=== PATIENT | male | born 1935 | race African-American/Black ===

== ENCOUNTER 2016-12-11 21:09 | Emergency (ER) | payer OTHER, BC ==
[2016-12-11 21:21] VITALS: TEMP 97.6
[2016-12-11] MEDS ORDERED: SODIUM CHLORIDE 0.9% 500 ML INFUS.BAG IV ONE (21:46)
--- NOTE | 2016-12-11 22:07 | PDOC ---
History of Present Illness - General History Source: Patient Exam Limitations: No Limitations - History of Present Illness Initial Comments: 12/11/16 22:17 82 year old male with past medical history of hypertension and diabetes who presents to the ED with complaints of dizziness for three days. As per patient, the symptoms are associated with a change in position. He reports that the symptoms are better when he is stationary. He qualifies the dizziness as a feeling of being off balance. He denies any room spinning sensation or blurred vision. He denies any syncope or LOC. He reports recently being placed on oxybutynin, flomax, primidone about a month ago. He denies any changes in appetite, urination or bowel movements. He denies any recent illness, fever, chills, nausea, vomiting, diarrhea, cough, shortness of breath, or chest pain. <Dana Chaney - Last Filed: 12/11/16 22:32> <Nino Esparza - Last Filed: 12/12/16 06:20> - General Chief Complaint: Lightheaded Stated Complaint: LIGHT HEADED Time Seen by Provider: 12/11/16 21:30 Past History <Dana Chaney - Last Filed: 12/11/16 22:32> - Past Medical History Cardiac Disorders: Yes (2 stents) Diabetes: Yes HTN: Yes Hypercholesterolemia: Yes - Surgical History Cardiac Surgery: Yes (2 stents [facility]) - Psycho/Social/Smoking Cessation Hx Anxiety: No Suicidal Ideation: No Smoking Status: No Smoking History: Never smoked Have you smoked in the past 12 months: No Number of Cigarettes Smoked Daily: 0 Information on smoking cessation initiated: No Drug/Substance Use Hx: No Substance Use Type: None <Nino Esparza - Last Filed: 12/12/16 06:20> - Past Medical History Allergies/Adverse Reactions: Allergies Allergy/AdvReac Type Severity Reaction Status Date / Time No Known Allergies Allergy Verified 12/11/16 21:21 Home Medications: Ambulatory Orders Atenolol 50 mg PO DAILY 10/20/11 Atorvastatin Ca [Lipitor] 80 mg PO HS 10/20/11 Review of Systems - Review of Systems Able to Perform ROS?: Yes Comments:: 12/11/16 22:17 GENERAL/CONSTITUTIONAL: No fever or chills. No weakness. HEAD, EYES, EARS, NOSE AND THROAT: No change in vision. No ear pain or discharge. No sore throat. CARDIOVASCULAR: No chest pain or shortness of breath. RESPIRATORY: No cough, wheezing, or hemoptysis. GASTROINTESTINAL: No nausea, vomiting, diarrhea or constipation. GENITOURINARY: No dysuria, frequency, or change in urination. MUSCULOSKELETAL: No joint or muscle swelling or pain. No neck or back pain. SKIN: No rash NEUROLOGIC: Present: dizziness, lightheadedness No headache, loss of consciousness, or change in strength/sensation. ENDOCRINE: No increased thirst. No abnormal weight change. HEMATOLOGIC/LYMPHATIC: No anemia, easy bleeding, or history of blood clots. ALLERGIC/IMMUNOLOGIC: No hives or skin allergy. All Other Systems: Reviewed and Negative <Dana Chaney - Last Filed: 12/11/16 22:32> *Physical Exam - Vital Signs Last Vital Signs Temp Pulse Resp BP Pulse Ox 97.6 F 64 18 136/71 96 12/11/16 21:18 12/11/16 21:18 12/11/16 21:18 12/11/16 21:18 12/11/16 21:18 - Physical Exam Comments: 12/11/16 22:18 GENERAL: Awake, alert, and fully oriented, in no acute distress HEAD: No signs of trauma EYES: PERRLA, EOMI, sclera anicteric, conjunctiva clear ENT: Auricles normal inspection, hearing grossly normal, nares patent, oropharynx clear without exudates. Moist mucosa NECK: Normal ROM, supple, no lymphadenopathy, JVD, or masses LUNGS: Breath sounds equal, clear to auscultation bilaterally. No wheezes, and no crackles HEART: Regular rate and rhythm, normal S1 and S2, no murmurs, rubs or gallops ABDOMEN: Soft, nontender, normoactive bowel sounds. No guarding, no rebound. No masses EXTREMITIES: Normal range of motion, no edema. No clubbing or cyanosis. No cords, erythema, or tenderness NEUROLOGICAL: Cranial nerves II through XII grossly intact. Normal speech, normal gait SKIN:Palmar pallor and facial pallor. Warm, Dry, normal turgor, no rashes or lesions noted. <Dana Chaney - Last Filed: 12/11/16 22:32> - Vital Signs Last Vital Signs Temp Pulse Resp BP Pulse Ox 97.6 F 64 18 136/71 96 12/11/16 21:18 12/11/16 21:18 12/11/16 21:18 12/11/16 21:18 12/11/16 21:18 <Nino Esparza - Last Filed: 12/12/16 06:20> ED Treatment Course - LABORATORY CBC & Chemistry Diagram: 12/11/16 21:54 12/11/16 21:54 - ADDITIONAL ORDERS Additional order review: 12/11/16 21:54 RBC 4.89 MCV 89.2 MCHC 33.9 RDW 14.7 MPV 8.9 Neutrophils % 50.6 Lymphocytes % 33.6 Monocytes % 11.6 H Eosinophils % 3.4 Basophils % 0.8 - Medications Given in the ED: ED Medications Discontinued Medications Generic Name Dose Route Start Last Admin Trade Name Freq PRN Reason Stop Dose Admin Sodium Chloride 500 ml 12/11/16 21:46 12/11/16 22:05 Normal Saline - IV 12/11/16 21:47 500 ml ONCE ONE Administration <Dana Chaney - Last Filed: 12/11/16 22:32> - LABORATORY CBC & Chemistry Diagram: 12/11/16 21:54 12/11/16 23:30 - Medications Given in the ED: ED Medications Discontinued Medications Generic Name Dose Route Start Last Admin Trade Name Freq PRN Reason Stop Dose Admin Sodium Chloride 500 ml 12/11/16 21:46 12/11/16 22:05 Normal Saline - IV 12/11/16 21:47 500 ml ONCE ONE Administration <Nino Esparza - Last Filed: 12/12/16 06:20> Medical Decision Making - Medical Decision Making 12/12/16 01:05 This is an 89yo m with light headedness reported "every time" he stands from seated or laying flat position. He has no chest pains reported and no other symptoms as well. He has a negative evaluation other than pallor and EKG is reassuring. He has no significant anemia; he has positive orthostatics indicating significant dehydration; will hydrate and recheck. If there is no normalization he may require admission for continued hydration. 12/12/16 06:17 Vitals have normalized and there is no evidence of orthostatic hypotension. He is encouraged to follow up with the PMD and to aggressively hydrate. <Nino Esparza - Last Filed: 12/12/16 06:20> *DC/Admit/Observation/Transfer - Attestations Scribe Attestion: 12/11/16 22:18 Documentation prepared by Dana Chaney, acting as medical office asst for Nino Esparza MD. <Dana Chaney - Last Filed: 12/11/16 22:32> - Discharge Dispostion Admit: No Decision to Admit order Date/Time: 12/12/16 06:18 - Attestations Physician Attestion: 12/12/16 06:20 I, Dr. Nino Esparza MD, attest that this document has been prepared under my direction and personally reviewed by me in its entirety. I further attest, that it accurately reflects all work, treatment, procedures and medical decision -making performed by me. <Nino Esparza - Last Filed: 12/12/16 06:20> Diagnosis at time of Disposition: Dehydration, Orthostatic hypotension - Discharge Dispostion Disposition: HOME Condition at time of disposition: Good - Patient Instructions Additional Instructions: Please follow up with your PMD within the next 24 hours and if there is any change otherwise in your symptoms, please return immediately to the ED. Your symptoms are MOST LIKELY related to dehydration and it is essential for you to aggressively hydrate yourself so that you are urinating at least once an hour and the urine is clear yellow. If you develop any change in your symptoms, particularly, if you develop any chest pain, palpitations and SOB, please call 911 and return.
[2016-12-11 22:08] LABS: BASOPHIL 0.8 % (0-2.0); EOSINOPHIL 3.4 % (0-4.5); MCH 30.3 pg (25.7-33.7); MCHC 33.9 g/dl (32.0-35.9); MEAN CELL VOLUME 89.2 fl (80-96); MEAN PLT VOLUME 8.9 fl (7.5-11.1); NEUTROPHILS 50.6 % (42.8-82.8); PLATELET COUNT 136 K/MM3 (134-434); RDW 14.7 % (11.9-15.9); WHITE BLOOD COUNT 5.3 K/mm3 (4.0-10.0)
[2016-12-11 22:20] LABS: INR 1.09 (0.82-1.09)
[2016-12-12 00:02] LABS: URINE APPEARANCE CLEAR; URINE BILIRUBIN NEGATIVE (NEGATIVE); URINE BLOOD NEGATIVE (NEGATIVE); URINE COLOR LTYELLOW; URINE GLUCOSE (UA) NEGATIVE (NEGATIVE); URINE KETONE TRACE (NEGATIVE); URINE LEUK ESTERASE NEGATIVE (NEGATIVE); URINE NITRITE NEGATIVE (NEGATIVE); URINE PROTEIN NEGATIVE (NEGATIVE); URINE UROBILINOGEN NEGATIVE E.U./dl (0.2-1.0)
[2016-12-12 00:27] LABS: ALBUMIN 3.9 g/dl (3.4-5.0); BILIRUBIN,TOTAL 0.8 mg/dL (0.2-1.0); CALCIUM 8.9 mg/dL (8.5-10.1); CREATININE 1.2 mg/dL (0.7-1.3); TOT PROT 7.4 g/dl (6.4-8.2)
[2016-12-12] MEDS ORDERED: SODIUM CHLORIDE 0.9% 500 ML INFUS.BAG IV ONE ×3 (00:39→01:03)
[2016-12-12] MEDS ORDERED: SODIUM CHLORIDE 0.9% 1000 ML INFUS.BAG IV ONE (01:03)
[2016-12-12 01:20] LABS: TROPONIN I < 0.02 ng/ml (0.00-0.05)
[2016-12-12 06:03] VITALS: PULSE 80
[2016-12-12 06:04] VITALS: BP 155/99
--- NOTE | 2016-12-13 11:23 | EKG ---
Test Reason : Blood Pressure : / mmHG Vent. Rate : 065 BPM Atrial Rate : 065 BPM P-R Int : 168 ms QRS Dur : 098 ms QT Int : 430 ms P-R-T Axes : 019 051 063 degrees QTc Int : 447 ms NORMAL SINUS RHYTHM POSSIBLE LEFT ATRIAL ENLARGEMENT INCOMPLETE RIGHT BUNDLE BRANCH BLOCK BORDERLINE ECG WHEN COMPARED WITH ECG OF 30-JUN-2007 07:57, NO SIGNIFICANT CHANGE WAS FOUND Confirmed by NANCY QUESADA MD ([id number]) on 12/13/2016 11:23:26 AM Referred By: Confirmed By:NANCY QUESADA MD
--- NOTE | 2016-12-13 11:24 | EKG ---
Test Reason : Blood Pressure : / mmHG Vent. Rate : 055 BPM Atrial Rate : 055 BPM P-R Int : 198 ms QRS Dur : 096 ms QT Int : 442 ms P-R-T Axes : 030 026 074 degrees QTc Int : 422 ms SINUS BRADYCARDIA POSSIBLE LEFT ATRIAL ENLARGEMENT POSSIBLE INFERIOR INFARCT , AGE UNDETERMINED CANNOT RULE OUT ANTERIOR INFARCT , AGE UNDETERMINED ABNORMAL ECG WHEN COMPARED WITH ECG OF 11-DEC-2016 21:58, NO SIGNIFICANT CHANGE WAS FOUND Confirmed by NANCY QUESADA MD ([id number]) on 12/13/2016 11:24:21 AM Referred By: Confirmed By:NANCY QUESADA MD
== END 2016-12-12 06:22 | disposition home or self-care (01) ==
LOC: JER 21:09 → SUPCPDRO 21:09 → JER 12-12 06:22
PROC: 3E0337Z Introduction of Electrolytic and Water Balance Substance into Peripheral Vein, Percutaneous Approach (ICD-10-PCS; principal; 2016-12-11)
DX: I95.1 Orthostatic hypotension (principal); E86.0 Dehydration; I10 Essential (primary) hypertension; E11.9 Type 2 diabetes mellitus without complications; Z95.5 Presence of coronary angioplasty implant and graft
CPT/HCPCS: 36415; 80053; 81003; 82550; 82553; 83605; 84484; 85025; 85610; 86850; 86900; 86901; 93005; 93010; 96360; 96361; 99282-25

== ENCOUNTER 2019-05-02 17:08 | Emergency (ER) | payer OTHER, BC ==
[2019-05-02 17:22] VITALS: TEMP 97.6; BMI 28.3
[2019-05-02] MEDS ORDERED: SODIUM CHLORIDE 0.9% 500 ML INFUS.BAG IV ONE (18:01)
--- NOTE | 2019-05-02 18:02 | PDOC ---
History of Present Illness - General Chief Complaint: Blood Sugar Problem Stated Complaint: BLURRY VISION/ HIGH BLOOD SUGAR Time Seen by Provider: 05/02/19 17:33 - History of Present Illness Initial Comments: Mr. Tolliver is an 83 y/o male with PMH significant for UT, stent placement, HTN, HLD, DM, BPH, presenting for dizziness today. Reports that the dizziness started 1 month ago, but has gotten worse today. Reports blurry vision. Denies that the room is spinning. Reports that he took his blood sugar today and it was > 500, and his niece brought him to the ED. Denies headache, denies chest pain, reports mild shortness of breath during the past month, denies nausea/vomiting, denies abdominal pain, denies urinary symptoms, denies changes in stool. Denies polyuria or polydipsia. Denies fever. PCP: Kevin Cards: Jose Past History - Past Medical History Allergies/Adverse Reactions: Allergies Allergy/AdvReac Type Severity Reaction Status Date / Time No Known Allergies Allergy Verified 05/02/19 17:18 Home Medications: Ambulatory Orders Atenolol 50 mg PO DAILY 10/20/11 Atorvastatin Ca [Lipitor] 80 mg PO HS 10/20/11 Cardiac Disorders: Yes (2 stents) COPD: No Diabetes: Yes HTN: Yes Hypercholesterolemia: Yes - Surgical History Cardiac Surgery: Yes (2 stents [facility]) - Immunization History Immunization Up to Date: Yes - Suicide/Smoking/Psychosocial Hx Smoking Status: No Smoking History: Never smoked Have you smoked in the past 12 months: No Number of Cigarettes Smoked Daily: 0 Hx Alcohol Use: No Drug/Substance Use Hx: No Substance Use Type: None Review of Systems - Review of Systems Comments:: ROS GENERAL/CONSTITUTIONAL: No fever or chills. No weakness._ HEAD, EYES, EARS, NOSE AND THROAT: Reports mild blurry vision. No ear pain or discharge. No sore throat._ CARDIOVASCULAR: No chest pain. Reports mild shortness of breath. RESPIRATORY: Denies cough, hemoptysis_ GASTROINTESTINAL: No nausea, vomiting, diarrhea or constipation. GENITOURINARY: No dysuria, frequency, or change in urination._ MUSCULOSKELETAL: No joint or muscle swelling or pain. No neck or back pain._ SKIN: No rash_ NEUROLOGIC: Reports dizziness. No headache, vertigo, loss of consciousness, or change in strength/sensation._ ENDOCRINE: No increased thirst. No abnormal weight change. Reports elevated blood glucose. HEMATOLOGIC/LYMPHATIC: No anemia, easy bleeding, or history of blood clots._ ALLERGIC/IMMUNOLOGIC: No hives or skin allergy._ *Physical Exam - Vital Signs Last Vital Signs Temp Pulse Resp BP Pulse Ox 97.6 F 72 18 85/37 L 100 05/02/19 17:20 05/02/19 17:20 05/02/19 17:20 05/02/19 17:20 05/02/19 17:20 - Physical Exam Comments: GENERAL: Awake, alert, and oriented to person/place/time, in no acute distress_ HEAD: No signs of trauma, normocephalic, atraumatic _ EYES: PERRLA, EOMI, sclera anicteric, conjunctiva clear_ ENT: Hearing grossly normal, nares patent, oropharynx clear without exudates. No uvular deviation. Moist mucosa_ NECK: Normal ROM, supple, no lymphadenopathy, JVD, or masses_ LUNGS: No distress, speaks in full sentences, clear to auscultation bilaterally _ HEART: Regular rate and rhythm, normal S1 and S2, no murmurs appreciated, peripheral pulses normal and equal bilaterally._ ABDOMEN: Soft, nontender, normoactive bowel sounds. No guarding, no rebound. No masses_ EXTREMITIES: Normal inspection, Normal range of motion, no edema. No clubbing or cyanosis_ NEUROLOGICAL: Cranial nerves II through XII grossly intact. Normal speech, normal gait, no focal sensorimotor deficits _ SKIN: Warm, Dry, normal turgor, no rashes or lesions noted_ ED Treatment Course - LABORATORY CBC & Chemistry Diagram: 05/02/19 18:05 05/02/19 18:05 - RADIOLOGY Radiology Studies Ordered: Category Date Time Status CHEST PA & LAT [RAD] Stat Radiology 05/02/19 18:00 Ordered Medical Decision Making - Medical Decision Making 05/02/19 1800 83M with hx of UT, HTN, HLD, DM, stents, presenting today with dizziness that started 1 month ago and worsened today. Associated with blurry vision. BP at triage is 85/40 and at bedside 80/47. Plan to obtain CBC, CMP, serum acetone, UA, EKG, trop, CXR. 05/02/191999 Pt BP increased to 130/97 after 1L of NS fluids. Reports that he is feeling better. Able to ambulate without dizziness. Acetone negative. CXR shows calcification of mitral valve but no acute intrathoracic process. Labs show glucose level > 500 and elevated BUN and Cr. 05/02/19 2100 Plan to d/c home to follow up PCP for medication adjustment for blood pressure control and and diabetes control with strict return precautions. *DC/Admit/Observation/Transfer Diagnosis at time of Disposition: Hyperglycemia Low blood pressure Qualifiers: Hypotension type: unspecified hypotension type Qualified Code(s): I95.9 - Hypotension, unspecified - Discharge Dispostion Disposition: HOME Condition at time of disposition: Stable Decision to Admit order: No - Referrals - Patient Instructions Printed Discharge Instructions: DI for Hyperglycemia -- Adult Additional Instructions: Please continue taking your medications as prescribed. Please make an appointment with your PCP Dr. Brown to follow up and discuss adjusting your diabetes and blood pressure medications as necessary. If you experience any new, worsening, or concerning symptoms, including headache , blurry vision, chest pain, shortness of breath, dizziness, loss of consciousness, confusion, disorientation, blood in the urine or stool, or any other concerns, please return to the emergency department. - Post Discharge Activity
[2019-05-02 18:21] LABS: BASO % 0.9 % (0-2.0); EOS % 2.1 % (0-4.5); HEMATOCRIT 39.1 % (35.4-49); HEMOGLOBIN 13.2 GM/dL (11.7-16.9); LYMPH % 24.6 % (8-40); MCH 30.2 pg (25.7-33.7); MCHC 33.7 g/dl (32.0-35.9); MEAN CELL VOLUME 89.5 fl (80-96); MEAN PLT VOLUME 9.6 fl (7.5-11.1); MONO % 12.8 % (3.8-10.2); NEUT % 59.6 % (42.8-82.8); PLATELET COUNT 121 K/MM3 (134-434); RBC 4.37 M/mm3 (4.00-5.60); RDW 14.4 % (11.9-15.9); WHITE BLOOD COUNT 6.3 K/mm3 (4.0-10.0)
[2019-05-02 18:47] LABS: ALBUMIN 3.5 g/dl (3.4-5.0); ALK PHOS 65 U/L (45-117); ANION GAP 11 MMOL/L (8-16); BILIRUBIN,TOTAL 0.9 mg/dL (0.2-1); BLOOD UREA NITROGEN 29.8 mg/dL (7-18); CALCIUM 8.6 mg/dL (8.5-10.1); CHLORIDE 96 mmol/L (98-107); CO2 26 mmol/L (21-32); CREATININE 2.3 mg/dL (0.55-1.3); POTASSIUM 4.6 mmol/L (3.5-5.1); SGOT/AST 14 U/L (15-37); SGPT/ALT 27 U/L (13-61); SODIUM 133 mmol/L (136-145); TOT PROT 6.8 g/dl (6.4-8.2)
[2019-05-02 19:21] VITALS: PULSE 65
[2019-05-02 19:32] LABS: GLUCOSE,RANDOM 563 mg/dL (74-106)
[2019-05-02 19:45] LABS: ACETONE SERUM NEGATIVE (NEGATIVE)
--- NOTE | 2019-05-02 20:43 | PDOC ---
Documentation entered by Roger Miner SCRIBE, acting as scribe for Melia Espinoza MD. Melia Espinoza MD: This documentation has been prepared by the Isidra hood Xhesika, SCRIBE, under my direction and personally reviewed by me in its entirety. I confirm that the documentation accurately reflects all work, treatment, procedures, and medical decision making performed by me. Attending Attestation - Resident Resident Name: Zan Lopez - ED Attending Attestation I have performed the following: I have examined & evaluated the patient, The case was reviewed & discussed with the resident, I agree w/resident's findings & plan, Exceptions are as noted - HPI HPI: 05/02/19 19:44 The patient is an 83 year old male with a significant PMH of CAD (1 stent), HTN, HLD and DM who presents to the emergency department with 1 month of dizziness worsening today. Patient notes he has been feeling lightheaded and his vision was blurry so he decided to check his blood sugar and notes it was over 500. The patient denies chest pain, shortness of breath, headache and dizziness. Denies fever, chills, cough, nausea, vomiting, diarrhea and constipation. Denies dysuria, frequency, urgency and hematuria. Allergies: NKDA - Physicial Exam PE: 05/02/19 19:45 GENERAL: Awake, alert, and fully oriented, in no acute distress HEAD: No signs of trauma EYES: PERRLA, EOMI, sclera anicteric, conjunctiva clear ENT: Auricles normal inspection, hearing grossly normal, nares patent, oropharynx clear without exudates. Moist mucosa NECK: Normal ROM, supple, no lymphadenopathy, JVD, or masses LUNGS: Breath sounds equal, clear to auscultation bilaterally. No wheezes, and no crackles HEART: Regular rate and rhythm, normal S1 and S2, no murmurs, rubs or gallops ABDOMEN: Soft, nontender, normoactive bowel sounds. No guarding, no rebound. No masses EXTREMITIES: Normal range of motion, no edema. No clubbing or cyanosis. No cords, erythema, or tenderness NEUROLOGICAL: Cranial nerves II through XII grossly intact. SKIN: Warm, Dry, normal turgor, no rashes or lesions noted. - Medical Decision Making 05/02/19 20:40 83 yo male with hyperglycemia but not in DKA, his acetone is negative repeat BP has SBP @ 120 spoke with his and the plan is for him to see his PCP, Dr Koehler this week
[2019-05-02 20:59] VITALS: BP 132/65
--- NOTE | 2019-05-03 13:35 | EKG ---
Test Reason : Blood Pressure : / mmHG Vent. 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
== END 2019-05-02 20:58 | disposition home or self-care (01) ==
LOC: JER 17:08
PROC: 3E0337Z Introduction of Electrolytic and Water Balance Substance into Peripheral Vein, Percutaneous Approach (ICD-10-PCS; principal; 2019-05-02)
DX: E11.65 Type 2 diabetes mellitus with hyperglycemia (principal); I95.9 Hypotension, unspecified; I25.10 Atherosclerotic heart disease of native coronary artery without angina pectoris; I10 Essential (primary) hypertension; Z95.5 Presence of coronary angioplasty implant and graft; I25.2 Old myocardial infarction; E78.5 Hyperlipidemia, unspecified; N40.0 Benign prostatic hyperplasia without lower urinary tract symptoms
CPT/HCPCS: 36415; 71046-TC-FY; 80053; 82009; 82550; 84484; 85025; 93005; 93010; 99284-25

== ENCOUNTER 2020-05-20 15:13 | Inpatient (IN) | payer OTHER, BC ==
[2020-05-20] MEDS ORDERED: SODIUM CHLORIDE 1,000 ML IV STA (15:20)
--- NOTE | 2020-05-20 15:22 | PDOC ---
Rapid Medical Evaluation Time Seen by Provider: 05/20/20 15:15 Medical Evaluation: Allergies Allergy/AdvReac Type Severity Reaction Status Date / Time No Known Allergies Allergy Verified 05/20/20 15:15 05/20/20 15:16 Pt with PMH of NIDDM (non-compliant with meds) presents to the ER for dizziness/lightheaded and weakness for the past three days. States he is not eating well because he "doesn't feel well" Exam: NAD, breathing comfortably on RA. RRR Orders: labs, EKG Pt to proceed to the ER for further evaluation Discharge Disposition - Diagnosis Lightheaded - Referrals - Patient Instructions - Post Discharge Activity
--- NOTE | 2020-05-20 15:52 | PDOC ---
History of Present Illness - General Chief Complaint: Lightheaded Stated Complaint: DIZZINESS Time Seen by Provider: 05/20/20 15:15 - History of Present Illness Initial Comments: 05/20/20 15:53 84 y/o M hx of NM s/p CABG, stent placement, HTN, HLD, DM, BPH presents to the ED with 3 days of lightheadedness. Incidents are triggered by position changes (sitting to standing, lying down to sitting up). Episodes last from a few sec onds to about 15 minutes and resolves once he sits or lies down. Niece at bedside reports patient has been non-compliant with his medications with decreased appetite. Pt does not use insulin. he denies any fevers. cough, chest pain, headache, tinnitus, headche, unilateral weakness, nausea, vomiting, shortness of breath. He endorses polyuria and polydipsia. PMHx: as noted above ROS: as noted SHx: Denies Etoh, IVDA, tobacco use Allergies: NKDA ROS: GENERAL/CONSTITUTIONAL: No fever or chills. No weakness. HEAD, EYES, EARS, NOSE AND THROAT: No change in vision. No ear pain or discharge. No sore throat. CARDIOVASCULAR: No chest pain or shortness of breath RESPIRATORY: No cough, wheezing, or hemoptysis. GASTROINTESTINAL: No nausea, vomiting, diarrhea or constipation. GENITOURINARY: No dysuria, frequency, or change in urination. MUSCULOSKELETAL: No joint or muscle swelling or pain. No neck or back pain. SKIN: No rash NEUROLOGIC: No headache, vertigo, loss of consciousness, or change in strength/sensation. ENDOCRINE: No increased thirst. No abnormal weight change HEMATOLOGIC/LYMPHATIC: No anemia, easy bleeding, or history of blood clots. ALLERGIC/IMMUNOLOGIC: No hives or skin allergy. PE: GENERAL: Awake, alert, and fully oriented, in no acute distress HEAD: No signs of trauma, normocephalic, atraumatic EYES: PERRLA, EOMI, sclera anicteric, conjunctiva clear ENT: Auricles normal inspection, hearing grossly normal, nares patent, oropharynx clear without exudates. Moist mucosa NECK: Normal ROM, supple, no lymphadenopathy, JVD, or masses LUNGS: No distress, speaks full sentences, clear to auscultation bilaterally HEART: Regular rate and rhythm, normal S1 and S2, no murmurs, rubs or gallops, peripheral pulses normal and equal bilaterally. ABDOMEN: Soft, nontender, normoactive bowel sounds. No guarding, no rebound. No masses EXTREMITIES : Normal inspection, Normal range of motion, no edema. No clubbing or cyanosis NEUROLOGICAL: Cranial nerves II through XII grossly intact. Normal speech, normal gait, no focal sensorimotor deficits SKIN: Warm, Dry, normal turgor, no rashes or lesions noted 05/20/20 16:28 05/20/20 16:29 05/20/20 18:48 Past History - Medical History Allergies/Adverse Reactions: Allergies Allergy/AdvReac Type Severity Reaction Status Date / Time No Known Allergies Allergy Verified 05/20/20 15:15 Home Medications: Ambulatory Orders Aspirin 81 mg PO DAILY 05/20/20 Atorvastatin Ca [Lipitor] 80 mg PO DAILY 05/20/20 Januvia 100 mg PO DAILY 05/20/20 Propranolol HCl 60 mg PO DAILY 05/20/20 Tamsulosin HCl 0.4 mg PO DAILY 05/20/20 metFORMIN HCL [Metformin HCl] 850 mg PO BID 05/20/20 Ezetimibe [Zetia] 10 mg PO DAILY 05/21/20 Finasteride 5 mg PO DAILY 05/21/20 Insulin Detemir [Levemir Flextouch] 10 unit SQ BID #4 vial 05/23/20 Memantine HCl [Namenda -] 5 mg PO BID #60 tab 05/23/20 Penicillin G Benzathine [Bicillin L-A -] 2,400,000 unit IM ONCE #1 syr 05/23/20 Sitagliptin Phos/Metformin HCl [Janumet 50-1,000 mg Tablet] 1 each PO BID #60 tablet 05/23/20 Cardiac Disorders: Yes (2 stents) COPD: No Diabetes: Yes HTN: Yes Hypercholesterolemia: Yes - Surgical History Cardiac Surgery: Yes (2 stents [facility]) - Immunization History Immunization Up to Date: Yes - Psycho-Social/Smoking History Smoking Status: No Smoking History: Never smoked Have you smoked in the past 12 months: No Number of Cigarettes Smoked Daily: 0 - Substance Abuse Hx (Audit-C & DAST Scrn) How often the patient has a drink containing alcohol: Never Score: In Men: 4 or > Positive; In Women: 3 or > Positive: 0 Screen Result (Pos requires Nsg. Audit-10AR): Negative In the last yr the pt used illegal drug/Rx for NonMed reason: No Score: Yes response is considered Positive: 0 Screen Result (Positive result requires Nsg. DAST-10): Negative *Physical Exam - Vital Signs Last Vital Signs Temp Pulse Resp BP Pulse Ox 97.7 F 68 18 129/67 100 05/20/20 15:16 05/20/20 15:16 05/20/20 15:16 05/20/20 15:16 05/20/20 15:16 ED Treatment Course - LABORATORY CBC & Chemistry Diagram: 05/23/20 07:20 05/23/20 07:20 Medical Decision Making - Medical Decision Making 05/20/20 17:53 84 y/o M hx of NM s/p CABG, stent placement, HTN, HLD, DM, BPH presents to the ED with 3 days of lightheadedness. Incidents are triggered by positon changes (sitting to standing, lying down to sitting up). Episodes last from a few seconds to about 15 minutes and resolve once he sits or lies down. ddx; acs, vasovagal syncope, dka, hhs, tia, labs, ekg, hyponatremic 125 corrected Na: 131 hyperglycemic 476 LONG, cr 1.8 meds: fluids. dr. albright consulted. recs put in for his the patient vbg pending, microblog sent 05/20/20 17:54 05/20/20 18:51 Discharge - Discharge Information Problems reviewed: Yes Clinical Impression/Diagnosis: Lightheaded, Hyperglycemia, Pre-syncope, LONG (acute kidney injury), Hyponatremia Condition: Guarded - Follow up/Referral - Patient Discharge Instructions - Post Discharge Activity
--- NOTE | 2020-05-20 16:14 | PDOC ---
Attending Attestation - Resident Resident Name: MelisaMayajessicaYoelvandanalore - ED Attending Attestation I have performed the following: I have examined & evaluated the patient, The case was reviewed & discussed with the resident, I agree w/resident's findings & plan, Exceptions are as noted - HPI HPI: 05/20/20 16:12 84YOM with h/o NV, stent placement, CABG, HTN, HLD, DM, BPH who p/w lightheadedness exacerbated by position change, intermittent for the past 3 days, lasting from only a few seconds up to 15 minutes per episode, relieved by laying down flat. He additionally notes increased urinary frequency but no dysuria, hematuria, f/c/n/v/d/c, chest pain, SOB, abdominal pain, back pain, BLACK, vision difficulties, cough, sore throat, or other symptoms. States he has not been adherent to his home medication regimen. - Physicial Exam PE: 05/20/20 16:12 GENERAL: elderly, nontoxic-appearing, no distress, answers questions appropriately, accompanied by family at bedside who assist in history, family states Pt is A/O per baseline and mentating at baseline HEENT: PERRLA, EOMI, moist mucous membranes NECK/BACK: no midline ttp, no spinal stepoff or deformity, no hematoma, full ROM, neck supple CARDIOVASCULAR: regular rate/rhythm, no MGR, strong peripheral pulses, capillary refill <2 seconds, extremities wwp, no edema LUNGS/RESPIRATORY: no respiratory distress, CTAB GI/ABDOMEN: symmetric [id number], normoactive BS, soft, no ttp, no midline pulsatile masses : no CVA tenderness MSK/EXTREMITIES: no acute-appearing muscle atrophy, no acute deformity DERM/SKIN: warm and dry, no pallor, no jaundice, no rash, no pathologic- appearing bruising, no skin breakdown, no cuts, no lesions NEUROLOGICAL: GCS 15, CN II-XII grossly intact, 5/5 strength proximally and distally, no facial droop - Medical Decision Making 84YOM p/w lightheadedness and story c/f presyncope. Initial Vital Signs Temp Pulse Resp BP Pulse Ox 97.7 F 68 18 129/67 100 05/20/20 15:16 05/20/20 15:16 05/20/20 15:16 05/20/20 15:16 05/20/20 15:16 Most likely presyncope d/t reflex (neurocardiogenic/vasovagal/situational/carotid sinus hypersensitivity), also possible cardiovascular or neurologic cause, orthostatic hypotension, polypharmacy, autonomic failure, or other causes not true syncope d/t subsequent neuro deficit (TIA/CVA, SAH, seizure, metabolic/electrolyte derangement e.g. DM/DKA tend to cause gradual slide into unconsciousness), infection/sepsis/vitals abnormalities, etc. Provider Orders Category Date Time Status VBG [VENOUS BLOOD GAS] Stat ABG 05/20/20 18:21 Completed ELECTROCARDIOGRAM [CARD] Stat Cardiology 05/20/20 15:19 Completed BGM (Blood Glucose Monitoring) NOW Care 05/20/20 15:50 Completed Cardiac Monitoring Continuous Care 05/20/20 15:40 Completed EKG needed NOW Care 05/20/20 15:19 Completed Consult [Physician Consultation] Physician 1 Cons 05/21/20 08:00 Ordered BETA-HYDROXYBUTYRATE Stat Lab 05/20/20 15:30 Completed BMP [BASIC METABOLIC PANEL] Stat Lab 05/20/20 19:29 Completed CARDIAC PROFILE ([facility]) Stat Lab 05/20/20 15:30 Completed CBC WITH DIFFERENTIAL Stat Lab 05/20/20 15:30 Completed CMP [COMP METABOLIC PANEL] Stat Lab 05/20/20 15:30 Completed CORTISOL AM Stat Lab 05/20/20 19:29 Completed CREATININE, URINE RANDOM Stat Lab 05/20/20 19:23 Completed ELECTROLYTES,URINE Stat Lab 05/20/20 19:23 Completed OSMOLALITY,SERUM Stat Lab 05/20/20 19:29 Completed OSMOLALITY,URINE Stat Lab 05/20/20 19:23 Completed THYROID STIMULATING HORMONE Stat Lab 05/20/20 19:29 Completed UA ([facility]) ONLY Stat Lab 05/20/20 19:23 Completed Insulin Regular [NOVOLIN R VIAL *For IVPUSH or IV DRIP Medication 05/20/20 18:44 Discontinued Only*] 6 units SQ ONCE ONE Sodium Chloride [Normal Saline -] Medication 05/20/20 18:39 Discontinued 1,000 ml IV ONCE ONE Sodium Chloride [Normal Saline -] 1,000 ml Medication 05/20/20 15:20 Discontinued IV ASDIR URINE CULTURE Stat Micro 05/20/20 16:08 Completed IV Insert NOW Phy Order 05/20/20 15:19 Completed CHEST X-RAY PORTABLE* [RAD] Stat Radiology 05/20/20 17:56 Completed Reminder: new phy cons See Order Reminders 05/20/20 17:42 Completed KIDNEY / RENAL US [US] Stat Ultrasound 05/20/20 18:11 Completed Lab Results WBC 9.0 K/mm3 (4.0-10.0) 05/20/20 15:30 RBC 5.45 M/mm3 (4.00-5.60) 05/20/20 15:30 Hgb 16.1 GM/dL (11.7-16.9) 05/20/20 15:30 Hct 48.7 % (35.4-49) 05/20/20 15:30 MCV 89.3 fl (80-96) 05/20/20 15:30 MCH 29.6 pg (25.7-33.7) 05/20/20 15:30 MCHC 33.1 g/dl (32.0-35.9) 05/20/20 15:30 RDW 14.2 % (11.9-15.9) D 05/20/20 15:30 Plt Count 312 K/MM3 (134-434) D 05/20/20 15:30 MPV 8.6 fl (7.5-11.1) 05/20/20 15:30 Absolute Neuts (auto) 6.3 K/mm3 (1.5-8.0) 05/20/20 15:30 Neutrophils % 70.1 % (42.8-82.8) 05/20/20 15:30 Lymphocytes % 18.3 % (8-40) D 05/20/20 15:30 Monocytes % 10.0 % (3.8-10.2) D 05/20/20 15:30 Eosinophils % 0.8 % (0-4.5) 05/20/20 15:30 Basophils % 0.8 % (0-2.0) 05/20/20 15:30 Nucleated RBC % 0 % (0-0) 05/20/20 15:30 VBG pH 7.405 (7.310-7.410) 05/20/20 18:21 POC VBG pCO2 39.7 mmHg (38-52) 05/20/20 18:21 POC VBG pO2 49.1 mmHg (28-48) H 05/20/20 18:21 VBG HCO3 24.3 mmol/L (23-29) 05/20/20 18:21 VBG O2 Sat (Antonio) 85.0 % (70-80) H 05/20/20 18:21 VBG Base Excess -0.2 mmol/L (-2-2) 05/20/20 18:21 Sodium 125 mmol/L (136-145) L 05/20/20 15:30 Potassium 5.4 mmol/L (3.5-5.1) H 05/20/20 15:30 Chloride 88 mmol/L (98-107) L 05/20/20 15:30 Carbon Dioxide 25 mmol/L (21-32) 05/20/20 15:30 Anion Gap 13 MMOL/L (8-16) 05/20/20 15:30 BUN 39.2 mg/dL (7-18) H 05/20/20 15:30 Creatinine 1.8 mg/dL (0.55-1.3) H 05/20/20 15:30 Est GFR (CKD-EPI)AfAm 39.46 05/20/20 15:30 Est GFR (CKD-EPI)NonAf 34.05 05/20/20 15:30 Random Glucose 471 mg/dL (74-106) H* 05/20/20 15:30 Calcium 9.3 mg/dL (8.5-10.1) 05/20/20 15:30 Total Bilirubin 0.8 mg/dL (0.2-1) 05/20/20 15:30 AST 20 U/L (15-37) 05/20/20 15:30 ALT 33 U/L (13-61) 05/20/20 15:30 Alkaline Phosphatase 107 U/L (45-117) 05/20/20 15:30 Creatine Kinase 48 U/L (26-308) 05/20/20 15:30 Troponin I < 0.02 ng/ml (0.00-0.05) 05/20/20 15:30 Total Protein 8.6 g/dl (6.4-8.2) H 05/20/20 15:30 Albumin 3.2 g/dl (3.4-5.0) L 05/20/20 15:30 Beta-Hydroxybutyrate 10.4 mg/dL (0.2-2.8) H 05/20/20 15:30 RAD/CHEST X-RAY PORTABLE* ADDENDUM ADDENDUM #1 ER notified of findings. Patient admitted. Follow-up imaging is suggested to reevaluate the density at the left base. ORIGINAL REPORT Chest: Lightheadedness Single view of the chest is been submitted. Since the prior study of 05/02/2019, there are degenerative changes, large heart, possible hiatal hernia, unfolded aorta, sternal sutures, mediastinal clips and right neck clips. There may be some atelectasis at the left base. Correlation and follow- up recommended. Reported By: Nino Rangel MD 05/21/20 0746 Chest: Lightheadedness Single view of the chest is been submitted. Since the prior study of 05/02/2019, there are deg enerative changes, large heart, possible hiatal hernia, unfolded aorta, sternal sutures, mediastinal clips and right neck clips. There may be some atelectasis at the left base. Correlation and follow- up recommended. Patient does have hyperglycemia and +beta hydroxybutyrate but no anion gap and not acidotic. Sodium corrects with hyperglycemia to only mild hyponatremia. He does not require insulin ggt and does not require ICU level of care at this time, is appropriate for Tele IP. Admission per resident note. Heart Score/ECG Review #1 05/20/20 15:31 NSR, sinus arrhythmia, rate of 83, normal axis and intervals, TWI in aVL, otherwise no ischemic ST-T changes Discharge - Discharge Information Problems reviewed: Yes Clinical Impression/Diagnosis: Lightheaded, Hyperglycemia, Pre-syncope, LONG (acute kidney injury), Hyponatremia Condition: Guarded - Admission Yes - Follow up/Referral - Patient Discharge Instructions - Post Discharge Activity
[2020-05-20 16:51] LABS: BASO % 0.8 % (0-2.0); EOS % 0.8 % (0-4.5); HEMATOCRIT 48.7 % (35.4-49); HEMOGLOBIN 16.1 GM/dL (11.7-16.9); LYMPH % 18.3 % (8-40); MCH 29.6 pg (25.7-33.7); MCHC 33.1 g/dl (32.0-35.9); MEAN CELL VOLUME 89.3 fl (80-96); MEAN PLT VOLUME 8.6 fl (7.5-11.1); NEUT % 70.1 % (42.8-82.8); PLATELET COUNT 312 K/MM3 (134-434); RBC 5.45 M/mm3 (4.00-5.60); RDW 14.2 % (11.9-15.9)
[2020-05-20 17:18] LABS: ALBUMIN 3.2 g/dl (3.4-5.0); ALK PHOS 107 U/L (45-117); ANION GAP 13 MMOL/L (8-16); BILIRUBIN,TOTAL 0.8 mg/dL (0.2-1); BLOOD UREA NITROGEN 39.2 mg/dL (7-18); CALCIUM 9.3 mg/dL (8.5-10.1); CHLORIDE 88 mmol/L (98-107); CO2 25 mmol/L (21-32); CREATININE 1.8 mg/dL (0.55-1.3); POTASSIUM 5.4 mmol/L (3.5-5.1); SGOT/AST 20 U/L (15-37); SGPT/ALT 33 U/L (13-61); SODIUM 125 mmol/L (136-145); TOT PROT 8.6 g/dl (6.4-8.2)
[2020-05-20 17:20] LABS: GLUCOSE,RANDOM 471 mg/dL (74-106)
--- NOTE | 2020-05-20 18:11 | CONSULT ---
Consult Consult Specialty:: Nephrology Reason for Consultation:: LONG - History of Present Illness Chief Complaint: light headedness History of Present Illness: Pt is an 84 year old gentleman with pmhx of DM, cabg, htn, hld, bph who presents with light headedness. He was found to have long and I was called to evaluate him. He was also found to be hyperglycemic. He denies history of ckd. He denies hematuria or dysuria. He denies nsaid use. He says that he takes his meds. He denies fevers or chills. he was also found to be hyponatremic. - History Source History Provided By: Patient, Medical Record - Past Medical History Cardio/Vascular: Yes: HTN, Hyperlipdemia Endocrine: Yes: Diabetes Mellitus - Alcohol/Substance Use Hx Alcohol Use: No - Smoking History Smoking history: Never smoked Have you smoked in the past 12 months: No Aproximately how many cigarettes per day: 0 Home Medications - Allergies Allergies/Adverse Reactions: Allergies Allergy/AdvReac Type Severity Reaction Status Date / Time No Known Allergies Allergy Verified 05/20/20 15:15 - Home Medications Home Medications: Ambulatory Orders Unobtainable 05/20/20 Family Medical History Family History: Denies Review of Systems - Review of Systems Constitutional: reports: Loss of Appetite, Malaise, Weakness Eyes: reports: No Symptoms HENT: reports: No Symptoms Neck: reports: No Symptoms Cardiovascular: reports: No Symptoms Respiratory: reports: No Symptoms Gastrointestinal: reports: No Symptoms Genitourinary: reports: No Symptoms Musculoskeletal: reports: No Symptoms Integumentary: reports: No Symptoms Neurological: reports: No Symptoms Endocrine: reports: No Symptoms Hematology/Lymphatic: reports: No Symptoms Physical Exam Vital Signs: Vital Signs Temperature 97.7 F 05/20/20 15:16 Pulse Rate 68 05/20/20 15:16 Respiratory Rate 18 05/20/20 15:16 Blood Pressure 129/67 05/20/20 15:16 O2 Sat by Pulse Oximetry (%) 100 05/20/20 15:16 Constitutional: Yes: Calm Eyes: Yes: Conjunctiva Clear HENT: Yes: Atraumatic Neck: Yes: Supple Cardiovascular: Yes: S1, S2 Respiratory: Yes: CTA Bilaterally Gastrointestinal: Yes: Normal Bowel Sounds, Soft Renal/: Yes: WNL Musculoskeletal: Yes: WNL Edema: No Neurological: Yes: Oriented Psychiatric: Yes: Oriented Labs: CBC, BMP 05/20/20 15:30 05/20/20 15:30 Problem List - Problems (1) Lightheaded Code(s): R42 - DIZZINESS AND GIDDINESS (2) Dehydration Code(s): E86.0 - DEHYDRATION (3) Hyperglycemia Code(s): R73.9 - HYPERGLYCEMIA, UNSPECIFIED Assessment/Plan Current Medications Generic Name Dose Route Start Last Admin Trade Name Lillian PRN Reason Stop Dose Admin Sodium Chloride 1,000 mls @ 125 mls/hr 05/20/20 15:20 05/20/20 17:48 Normal Saline - IV 05/20/20 23:19 125 mls/hr ASDIR STA Administration Impression 1. long 2. hyperglycemia 3. dm 4. hyponatremia 5. hyperkalemia 6. htn 7. cabg 8. bph Plan - start fluids - will need to control blood sugar - check ua, urine lytes and slab worker - check renal ultrasound - check urine and plasma osm - check tsh and cortisol - obtain med list - cont to monitor labs - discussed with er team - will place orders for workup listed
[2020-05-20] MEDS ORDERED: SODIUM CHLORIDE 0.9% 500 ML INFUS.BAG IV ONE (18:39)
[2020-05-20] MEDS ORDERED: INSULIN REGULAR HUMAN 100 UNITS/ML *VIAL SQ ONE (18:44)
[2020-05-20 19:42] LABS: VENOUS BASE EXCESS -0.2 mmol/L (-2-2); VENOUS PCO2 39.7 mmHg (38-52); VENOUS PH 7.405 (7.310-7.410)
[2020-05-20 20:25] LABS: ANION GAP 10 MMOL/L (8-16); BLOOD UREA NITROGEN 38.4 mg/dL (7-18); CALCIUM 9.1 mg/dL (8.5-10.1); CHLORIDE 95 mmol/L (98-107); CO2 27 mmol/L (21-32); CREATININE 1.7 mg/dL (0.55-1.3); GLUCOSE,RANDOM 316 mg/dL (74-106); POTASSIUM 4.8 mmol/L (3.5-5.1); SODIUM 132 mmol/L (136-145)
[2020-05-20 21:02] LABS: OSMOLALITY,SERUM 303 mosm/kg (278-305)
--- NOTE | 2020-05-20 23:05 | PN ---
Teaching Attending Note ATTENDING PHYSICIAN STATEMENT I saw and evaluated the patient. I reviewed the resident's note and discussed the case with the resident. I agree with the resident's findings and plan as documented. SUBJECTIVE: OBJECTIVE: ASSESSMENT AND PLAN:
[2020-05-21] MEDS ORDERED: INSULIN (LEVEMIR) 100 UNITS/ML UNITS SQ ONE (00:19)
[2020-05-21] MEDS ORDERED: HEPARIN NA (PORCINE) 5,000 UNITS/ML 1ML VIAL ONE ×2 (01:09→05:57)
[2020-05-21] MEDS: HEPARIN NA (PORCINE) 5,000 UNITS/ML 1ML VIAL SQ SCH ×4 (01:13→22:13)
--- NOTE | 2020-05-21 01:58 | HP ---
<Blanche Calvin - Last Filed: 05/21/20 03:49> CHIEF COMPLAINT: lightheadedness, dizziness PCP: Dr. Bar Brown HISTORY OF PRESENT ILLNESS: 84yo M with PMH of [place] s/p CABG (~35 years ago), HTN, HLD, NIDDM, and BPH who presented upon 's request with dizziness and lightheadedness. Patient explained that this occasionally happens to him and has been going on for a couple of days. He said the symptoms come and go, are more noticeable when he is moving around. Per telephone conversation with his , she took away his car keys when she noticed that he was "weak". Patient said that he now feels his normal self, and denied any associated symptoms including headaches, vertigo, CP, SOB, abdominal pain, weakness, NVD, constipation, dysuria polyuria. He explained that he had polyuria in the past when he would eat too many sweets. Meds were confirmed with his via the phone, he explained that she keep an eye on everything including his health and medications. Patient was previously evaluated for Dizziness on 01/03/20 - blood work and EKG were normal, and he was instructed to hydrate. ED Course was notable for: (0) initial glucose 471 (repeat 316), anion gap 13 (repeat 10), b- hydroxybutyrate 10.4, VBG pH 7.4 (1) 97.7F, 68, 129/67, 18 (2) initial hyponatremia and hyperkalemia (resolved on repeat BMP, Na corrected for hyperglycemia), BUN 39.2, Cr 1.8 (baseline ~ 1.2 - 1.3) (3) EKG: NSR, rate 83, TWI in aVL, no acute ST changes (4) Chest X-Ray - grossly unremarkable (official read pending) (5) US renal - minimal to mild diffuse bilateral cortical atrophy, no hydronephrosis (6) received: NS 1L, Novolog 6U IVP, 125cc/h NS Recent Travel: has not travelled since COVID PAST MEDICAL HISTORY: as above PAST SURGICAL HISTORY: open heart surgery Social History: Smoking: denied Alcohol: denied Drugs: denied Home: lives with , daughter, and 11 grandchildren Allergies No Known Allergies Allergy (Verified 08/24/20 15:15) HOME MEDICATIONS: Home Medications Medication Instructions Recorded Aspirin 81 daily 05/20/20 Atorvastatin Ca [Lipitor] 80 daily 05/20/20 Januvia 100 daily 05/20/20 Propranolol HCl 60 daily 05/20/20 Tamsulosin HCl 0.4 daily 05/20/20 metFORMIN HCL [Metformin HCl] 850 daily 05/20/20 Finasteride 5 mg PO DAILY 05/21/20 REVIEW OF SYSTEMS as per above PHYSICAL EXAMINATION Vital Signs - 24 hr 05/20/20 15:16 Temperature 97.7 F Pulse Rate 68 Respiratory 18 Rate Blood Pressure 129/67 O2 Sat by Pulse 100 Oximetry (%) GENERAL: AAM, appears stated age, sitting on chair about to eat a sandwich, fully oriented showing no signs of acute distress HEAD: Normal with no signs of trauma EYES: PERRL, direct and consensual pupillary reflex intact, bilateral arcus senilis, extraocular movements intact, sclara clear LUNGS: CTAB, no wheezing appreciated HEART: RRR, S1 S2 without murmurs ABDOMEN: Soft, nontender, not distended, active bowel sounds, large sternal vertical scar (~10-15cm) MUSCULOSKELETAL: Normal range of motion at all joints, walking without difficulties EXTREMITIES: radial pulses easily palpable, dorsalis pedis not palpable, UEs warm to touch, feet cold to touch, no peripheral edema noted NEUROLOGICAL: Cranial nerves II-XII grossly intact, normal speech, normal gait, sensation intact including toes PSYCHIATRIC: Cooperative. Good eye contact. "good" mood and affect congruent with stated mood, talkative, occasionally mildly tangential SKIN: no other rashes or lesions noted Laboratory Results - last 24 hr 05/20/20 05/20/20 05/20/20 15:30 15:30 18:21 WBC 9.0 RBC 5.45 Hgb 16.1 Hct 48.7 MCV 89.3 MCH 29.6 MCHC 33.1 RDW 14.2 D Plt Count 312 D MPV 8.6 Absolute Neuts (auto) 6.3 Neutrophils % 70.1 Lymphocytes % 18.3 D Monocytes % 10.0 D Eosinophils % 0.8 Basophils % 0.8 Nucleated RBC % 0 VBG pH 7.405 POC VBG pCO2 39.7 POC VBG pO2 49.1 H VBG HCO3 24.3 VBG O2 Sat (Antonio) 85.0 H VBG Base Excess -0.2 Sodium 125 L Potassium 5.4 H Chloride 88 L Carbon Dioxide 25 Anion Gap 13 BUN 39.2 H Creatinine 1.8 H Est GFR (CKD-EPI)AfAm 39.46 Est GFR (CKD-EPI)NonAf 34.05 Random Glucose 471 H* Serum Osmolality Calcium 9.3 Total Bilirubin 0.8 AST 20 ALT 33 Alkaline Phosphatase 107 Creatine Kinase 48 Troponin I < 0.02 Total Protein 8.6 H Albumin 3.2 L Beta-Hydroxybutyrate 10.4 H TSH 05/20/20 19:29 WBC RBC Hgb Hct MCV MCH MCHC RDW Plt Count MPV Absolute Neuts (auto) Neutrophils % Lymphocytes % Monocytes % Eosinophils % Basophils % Nucleated RBC % VBG pH POC VBG pCO2 POC VBG pO2 VBG HCO3 VBG O2 Sat (Antonio) VBG Base Excess Sodium 132 L Potassium 4.8 Chloride 95 L Carbon Dioxide 27 Anion Gap 10 BUN 38.4 H Creatinine 1.7 H Est GFR (CKD-EPI)AfAm 42.28 Est GFR (CKD-EPI)NonAf 36.48 Random Glucose 316 H Serum Osmolality 303 Calcium 9.1 Total Bilirubin AST ALT Alkaline Phosphatase Creatine Kinase Troponin I < 0.02 Total Protein Albumin Beta-Hydroxybutyrate TSH 0.92 ASSESSMENT/PLAN: 84yo M with PMH of [place] s/p CABG (~35 years ago), HTN, HLD, NIDDM, and BPH who presented with dizziness and lightheadedness, ED workup showed initial glucose 471 and BUN/Cr 39.2/1.8 and patient was admitted for hyperglycemia and LONG. #Hyperglycemia - normal pH, likely due to noncompliance (starvation ketosis, uncontrolled DM) initial glucose 471 (repeat 316), anion gap 13 (repeat 10), b-hydroxybutyrate 10.4, VBG pH 7.4 received: NS 1L, Novolog 6U IVP, 125cc/h NS - ordered 10 units levemir and ISS - BGM Q4H - am A1C - 100 cc/h NS (one bag) - holding home meds. Home meds were confirmed with via phone - please re- verify with pharmacy in AM #LONG - likely due to dehydration BUN 39.2, Cr 1.8 (baseline ~ 1.2 - 1.3) - nephrology consulted - appreciate recs: fluids, urine lytes, renal US, urine and plasma osm, TSH, am cortisol #HTN - resume home meds when indicated #HLD - resume home statin #[place] s/p CABG - resume home aspirin and statin #BPH - continue home tamsulosin and finasteride #FEN - 100cc/h NS - replete lytes PRN - diabetic controlled diet #Dispo: continue monitoring patient in telemetry ATTENDING PHYSICIAN STATEMENT I saw and evaluated the patient. I reviewed the resident's note and discussed the case with the resident. I agree with the resident's findings and plan as documented. SUBJECTIVE: OBJECTIVE: ASSESSMENT AND PLAN: <Dusty Boogie - Last Filed: 05/21/20 04:48> CHIEF COMPLAINT: PCP: HISTORY OF PRESENT ILLNESS: ER course was notable for: (1) (2) (3) Recent Travel: PAST MEDICAL HISTORY: PAST SURGICAL HISTORY: Social History: Smoking: Alcohol: Drugs: Allergies No Known Allergies Allergy (Verified 05/20/20 15:15) HOME MEDICATIONS: Home Medications Medication Instructions Recorded Aspirin 81 mg PO DAILY 05/20/20 Atorvastatin Ca [Lipitor] 80 mg PO DAILY 05/20/20 Januvia 100 mg PO DAILY 05/20/20 Propranolol HCl 60 mg PO DAILY 05/20/20 Tamsulosin HCl 0.4 mg PO DAILY 05/20/20 metFORMIN HCL [Metformin HCl] 850 mg PO BID 05/20/20 Finasteride 5 mg PO DAILY 05/21/20 REVIEW OF SYSTEMS CONSTITUTIONAL: Absent: fever, chills, diaphoresis, generalized weakness, malaise, loss of appetite, weight change HEENT: Absent: rhinorrhea, nasal congestion, throat pain, throat swelling, difficulty swallowing, mouth swelling, ear pain, eye pain, visual changes CARDIOVASCULAR: Absent: chest pain, syncope, palpitations, irregular heart rate, lighthea dedness, peripheral edema RESPIRATORY: Absent: cough, shortness of breath, dyspnea with exertion, orthopnea, wheezing, stridor, hemoptysis GASTROINTESTINAL: Absent: abdominal pain, abdominal distension, nausea, vomiting, diarrhea, constipation, melena, hematochezia GENITOURINARY: Absent: dysuria, frequency, urgency, hesitancy, hematuria, flank pain, genital pain MUSCULOSKELETAL: Absent: myalgia, arthralgia, joint swelling, back pain, neck pain SKIN: Absent: rash, itching, pallor HEMATOLOGIC/IMMUNOLOGIC: Absent: easy bleeding, easy bruising, lymphadenopathy, frequent infections ENDOCRINE: Absent: unexplained weight gain, unexplained weight loss, heat intolerance, cold intolerance NEUROLOGIC: Absent: headache, focal weakness or paresthesias, dizziness, unsteady gait, seizure, mental status changes, bladder or bowel incontinence PSYCHIATRIC: Absent: anxiety, depression, suicidal or homicidal ideation, hallucinations. PHYSICAL EXAMINATION Vital Signs - 24 hr 05/20/20 05/21/20 15:16 01:56 Temperature 97.7 F Pulse Rate 68 Pulse Rate [ 77 Left] Respiratory 18 18 Rate Blood Pressure 129/67 Blood Pressure 103/56 L [Right Arm] O2 Sat by Pulse 100 97 Oximetry (%) GENERAL: Awake, alert, and fully oriented, in no acute distress. HEAD: Normal with no signs of trauma. EYES: Pupils equal, round and reactive to light, extraocular movements intact, sclera anicteric, conjunctiva clear. No lid lag. EARS, NOSE, THROAT: Ears normal, nares patent, oropharynx clear without exudates. Moist mucous membranes. NECK: Normal range of motion, supple without lymphadenopathy, JVD, or masses. LUNGS: Breath sounds equal, clear to auscultation bilaterally. No wheezes, and no crackles. No accessory muscle use. HEART: Regular rate and rhythm, normal S1 and S2 without murmur, rub or gallop. ABDOMEN: Soft, nontender, not distended, normoactive bowel sounds, no guarding, no rebound, no masses. No hepatomegaly or splenomegaly. MUSCULOSKELETAL: Normal range of motion at all joints. No bony deformities or tenderness. No CVA tenderness. UPPER EXTREMITIES: 2+ pulses, warm, well-perfused. No cyanosis. No clubbing. No peripheral edema. LOWER EXTREMITIES: 2+ pulses, warm, well-perfused. No calf tenderness. No peripheral edema. NEUROLOGICAL: Cranial nerves II-XII intact. Normal speech. Normal gait. PSYCHIATRIC: Cooperative. Good eye contact. Appropriate mood and affect. SKIN: Warm, dry, normal turgor, no rashes or lesions noted, normal capillary refill. Laboratory Results - last 24 hr 05/20/20 05/20/20 05/20/20 15:30 15:30 18:21 WBC 9.0 RBC 5.45 Hgb 16.1 Hct 48.7 MCV 89.3 MCH 29.6 MCHC 33.1 RDW 14.2 D Plt Count 312 D MPV 8.6 Absolute Neuts (auto) 6.3 Neutrophils % 70.1 Lymphocytes % 18.3 D Monocytes % 10.0 D Eosinophils % 0.8 Basophils % 0.8 Nucleated RBC % 0 VBG pH 7.405 POC VBG pCO2 39.7 POC VBG pO2 49.1 H VBG HCO3 24.3 VBG O2 Sat (Antonio) 85.0 H VBG Base Excess -0.2 Sodium 125 L Potassium 5.4 H Chloride 88 L Carbon Dioxide 25 Anion Gap 13 BUN 39.2 H Creatinine 1.8 H Est GFR (CKD-EPI)AfAm 39.46 Est GFR (CKD-EPI)NonAf 34.05 Random Glucose 471 H* Serum Osmolality Calcium 9.3 Total Bilirubin 0.8 AST 20 ALT 33 Alkaline Phosphatase 107 Creatine Kinase 48 Troponin I < 0.02 Total Protein 8.6 H Albumin 3.2 L Beta-Hydroxybutyrate 10.4 H TSH Urine Color Urine Appearance Urine pH Ur Specific [place] Urine Protein Urine Glucose (UA) Urine Ketones Urine Blood Urine Nitrite Urine Bilirubin Urine Urobilinogen Ur Leukocyte Esterase Urine WBC (Auto) Urine RBC (Auto) Urine Casts (Auto) U Epithel Cells (Auto) Urine Bacteria (Auto) Urine Yeast (Auto) Ur Random Creatinine Ur Random Sodium Ur Random Potassium Ur Random Chloride 05/20/20 05/21/20 05/21/20 19:29 02:00 02:00 WBC RBC Hgb Hct MCV MCH MCHC RDW Plt Count MPV Absolute Neuts (auto) Neutrophils % Lymphocytes % Monocytes % Eosinophils % Basophils % Nucleated RBC % VBG pH POC VBG pCO2 POC VBG pO2 VBG HCO3 VBG O2 Sat (Antonio) VBG Base Excess Sodium 132 L Potassium 4.8 Chloride 95 L Carbon Dioxide 27 Anion Gap 10 BUN 38.4 H Creatinine 1.7 H Est GFR (CKD-EPI)AfAm 42.28 Est GFR (CKD-EPI)NonAf 36.48 Random Glucose 316 H Serum Osmolality 303 Calcium 9.1 Total Bilirubin AST ALT Alkaline Phosphatase Creatine Kinase Troponin I < 0.02 Total Protein Albumin Beta-Hydroxybutyrate TSH 0.92 Urine Color Red Urine Appearance Turbid Urine pH 5.5 Ur Specific Cal[place] 1.024 Urine Protein 2+ H Urine Glucose (UA) 3+ H Urine Ketones Trace H Urine Blood 3+ H Urine Nitrite Positive H Urine Bilirubin 1+ H Urine Urobilinogen 1.0 Ur Leukocyte Esterase 3+ H Urine WBC (Auto) 3298 Urine RBC (Auto) 10667 Urine Casts (Auto) 16 U Epithel Cells (Auto) 12 Urine Bacteria (Auto) >9,000 Urine Yeast (Auto) None seen Ur Random Creatinine 64.0 Ur Random Sodium 39 L Ur Random Potassium 41.0 Ur Random Chloride 29 L ASSESSMENT/PLAN: Family Medical History Family History: As Documented Visit type - Medication Review Med list reviewed for High Risk Meds patients 65 and older: Yes - Emergency Visit Emergency Visit: Yes ED Registration Date: 05/20/20 Care time: The patient presented to the Emergency Department on the above date and was hospitalized for further evaluation of their emergent condition. - New Patient This patient is new to me today: Yes Date on this admission: 05/21/20 - Critical Care Critical Care patient: No ATTENDING PHYSICIAN STATEMENT I saw and evaluated the patient. I reviewed the resident's note and discussed the case with the resident. I agree with the resident's findings and plan as documented. 84yo M with PMH of [place] s/p CABG , HTN, HLD, NIDDM, and BPH presented with dizziness and lightheadedness. for last couple of days, intermittent. Denies LOC, nausea, vomiting, fever, chest pain, SOB After coming to ED he was found to have hyperglycemia 471 Long Hyponatremia, hyperkalemia b-hydroxybutyrate 10.4 Uncontrolled Dm with hyperglycemia non Compliance with medications LONG Dehydration HTN, HLD IV hydration 100 ml/hour NS nephrology appreciated. follow recommendations give Levemir 10 units HD with SSI POCT q 4 HBa1c resume home meds DVt ppx rest of the plan as resident's note discussed in details
[2020-05-21 02:32] LABS: EPI CELLS 12 /uL (0-25.1); HYALINE CASTS 16 /uL (0-3.1); PH,URINE 5.5 (5.0-8.0); URINE APPEARANCE TURBID; URINE BACTERIA >9,000 /uL (0-1359); URINE BILIRUBIN 1+ (NEGATIVE); URINE COLOR RED; URINE GLUCOSE (UA) 3+ (NEGATIVE); URINE KETONE TRACE (NEGATIVE); URINE LEUK ESTERASE 3+ (NEGATIVE); URINE NITRITE POSITIVE (NEGATIVE); URINE PROTEIN 2+ (NEGATIVE); URINE WBC 3298 /uL (0-25.8)
[2020-05-21 03:13] LABS: URINE RBC 27963 /uL (0-23.9)
[2020-05-21 03:14] LABS: YEAST NONE SEEN (NEGATIVE)
[2020-05-21] MEDS ORDERED: SODIUM CHLORIDE 1,000 ML IV SCH (04:15)
[2020-05-21] MEDS: INSULIN SLIDING SCALE (NOVOLOG) 1 VIAL SQ SCH ×4 (06:16→22:04)
[2020-05-21 06:52] LABS: BASO % 0.6 % (0-2.0); EOS % 1.1 % (0-4.5); HEMATOCRIT 45.6 % (35.4-49); HEMOGLOBIN 15.6 GM/dL (11.7-16.9); LYMPH % 27.5 % (8-40); MCH 30.2 pg (25.7-33.7); MCHC 34.2 g/dl (32.0-35.9); MEAN CELL VOLUME 88.5 fl (80-96); MEAN PLT VOLUME 8.4 fl (7.5-11.1); MONO % 9.1 % (3.8-10.2); NEUT % 61.7 % (42.8-82.8); PLATELET COUNT 284 K/MM3 (134-434); RBC 5.15 M/mm3 (4.00-5.60); RDW 14.2 % (11.9-15.9); WHITE BLOOD COUNT 6.8 K/mm3 (4.0-10.0)
[2020-05-21 07:43] LABS: ALBUMIN 3.2 g/dl (3.4-5.0); BILIRUBIN,TOTAL 0.8 mg/dL (0.2-1); BLOOD UREA NITROGEN 36.1 mg/dL (7-18); CALCIUM 9.3 mg/dL (8.5-10.1); CREATININE 1.6 mg/dL (0.55-1.3); MAGNESIUM 2.5 mg/dL (1.8-2.4); PHOSPHOROUS 3.5 mg/dL (2.5-4.9); POTASSIUM 4.9 mmol/L (3.5-5.1); TOT PROT 8.5 g/dl (6.4-8.2)
[2020-05-21] MEDS ORDERED: PATIENT'S OWN MEDICATION (NON-FORMULARY) (Propranolol Hcl [Propranolol Hcl] 60 MG) PO SCH (10:00)
--- NOTE | 2020-05-21 10:18 | EKG ---
Test Reason : Blood Pressure : / mmHG Vent. Rate : 083 BPM Atrial Rate : 083 BPM P-R Int : 182 ms QRS Dur : 104 ms QT Int : 388 ms P-R-T Axes : -02 063 059 degrees QTc Int : 455 ms NORMAL SINUS RHYTHM WITH SINUS ARRHYTHMIA CANNOT RULE OUT INFERIOR INFARCT , AGE UNDETERMINED CANNOT RULE OUT ANTERIOR INFARCT (CITED ON OR BEFORE 12-DEC-2016) ABNORMAL ECG WHEN COMPARED WITH ECG OF 03-JAN-2020 18:27, NON-SPECIFIC CHANGE IN ST SEGMENT IN ANTERIOR LEADS T WAVE INVERSION NO LONGER EVIDENT IN LATERAL LEADS Confirmed by MD Faye Daniel ([id number]) on 05/21/2020 10:18:02 AM Referred By: Confirmed By:Abdiel Faye MD
[2020-05-21] MEDS: SODIUM CHLORIDE 1,000 ML IV SCH (11:28)
[2020-05-21] MEDS: TAMSULOSIN HCL 0.4 MG CAP PO SCH (11:29)
[2020-05-21] MEDS: ASPIRIN 81 MG CHEWABLE TABLETS PO SCH (11:29)
[2020-05-21] MEDS: CEFTRIAXONE 1 GM in DEXTROSE 5%-WATER - 50 ML IVPB SCH (11:29)
[2020-05-21] MEDS: INSULIN (LEVEMIR) 100 UNITS/ML UNITS SQ SCH ×2 (11:29→22:13)
[2020-05-21] MEDS: FINASTERIDE 5 MG TABLET (FP) PO SCH (11:29)
--- NOTE | 2020-05-21 13:20 | PN ---
Progress Note, Physician History of Present Illness: Pt seen and examined at bedside. He is awake and alert. He pulled his IV last night and he is not getting fluids. - Current Medication List Current Medications: Active Medications Aspirin (Asa -) 81 mg PO DAILY [facility] Last Admin: 05/21/20 11:29 Dose: 81 mg Documented by: Atorvastatin Calcium (Lipitor -) 80 mg PO [facility] Finasteride (Proscar -) 5 mg PO DAILY [facility] Last Admin: 05/21/20 11:29 Dose: 5 mg Documented by: Heparin Sodium (Porcine) (Heparin -) 5,000 unit SQ TID [facility] Last Admin: 05/21/20 06:13 Dose: 5,000 unit Documented by: Sodium Chloride (Normal Saline -) 1,000 mls @ 100 mls/hr IV ASDIR [facility] Last Admin: 05/21/20 11:28 Dose: 100 mls/hr Documented by: Ceftriaxone Sodium 1 gm/ (Dextrose) 50 mls @ 100 mls/hr IVPB DAILY [facility] Last Admin: 05/21/20 11:29 Dose: 100 mls/hr Documented by: Insulin Aspart (Novolog Vial Sliding Scale -) 1 vial SQ ACHS [facility]; Protocol Last Admin: 05/21/20 11:29 Dose: 8 unit Documented by: Insulin Detemir (Levemir Vial) 8 units SQ BID [facility] Last Admin: 05/21/20 11:29 Dose: 8 units Documented by: Non-Formulary Medication (Propranolol Hcl [Propranolol Hcl]) 60 mg PO DAILY [facility] Tamsulosin HCl (Flomax -) 0.4 mg PO DAILY@0830 [facility] Last Admin: 05/21/20 11:29 Dose: 0.4 mg Documented by: - Objective Vital Signs: Vital Signs Temperature 97.4 F L 05/21/20 10:00 Pulse Rate 68 05/21/20 10:00 Respiratory Rate 18 05/21/20 10:00 Blood Pressure 149/78 05/21/20 10:00 O2 Sat by Pulse Oximetry (%) 99 05/21/20 10:00 Constitutional: Yes: Calm Eyes: Yes: Conjunctiva Clear HENT: Yes: Atraumatic Neck: Yes: Supple Cardiovascular: Yes: S1, S2 Respiratory: Yes: CTA Bilaterally Gastrointestinal: Yes: Soft Genitourinary: Yes: WNL Musculoskeletal: Yes: WNL Edema: No Neurological: Yes: Oriented Labs: CBC, BMP 08/25/20 06:12 05/21/20 06:12 Problem List - Problems (1) Lightheaded Code(s): R42 - DIZZINESS AND GIDDINESS (2) Dehydration Code(s): E86.0 - DEHYDRATION (3) Hyperglycemia Code(s): R73.9 - HYPERGLYCEMIA, UNSPECIFIED Assessment/Plan Current Medications Generic Name Dose Route Start Last Admin Trade Name Freq PRN Reason Stop Dose Admin Aspirin 81 mg 05/21/20 10:00 05/21/20 11:29 Asa - PO 81 mg DAILY [facility] Administration Atorvastatin Calcium 80 mg 05/21/20 22:00 Lipitor - PO HS [facility] Finasteride 5 mg 05/21/20 10:00 05/21/20 11:29 Proscar - PO 5 mg DAILY [facility] Administration Heparin Sodium (Porcine) 5,000 unit 05/20/20 22:00 05/21/20 06:13 Heparin - SQ 5,000 unit TID [facility] Administration Sodium Chloride 1,000 mls @ 100 mls/hr 05/21/20 09:45 05/21/20 11:28 Normal Saline - IV 100 mls/hr ASDIR [facility] Administration Ceftriaxone Sodium 1 gm/ 50 mls @ 100 mls/hr 05/21/20 10:00 05/21/20 11:29 Dextrose IVPB 100 mls/hr DAILY [facility] Administration Insulin Aspart 1 vial 05/21/20 07:00 05/21/20 11:29 Novolog Vial Sliding Scale - SQ 8 unit ACHS [facility] Administration Protocol Insulin Detemir 8 units 05/21/20 10:00 05/21/20 11:29 Levemir Vial SQ 8 units BID [facility] Administration Non-Formulary Medication 60 mg 05/21/20 10:00 Propranolol Hcl [Propranolol Hcl] PO DAILY [facility] Tamsulosin HCl 0.4 mg 05/21/20 10:00 05/21/20 11:29 Flomax - PO 0.4 mg DAILY@0830 [facility] Administration Impression 1. larry 2. hyperglycemia 3. dm 4. hyponatremia 5. hyperkalemia 6. htn 7. cabg 8. bph Plan - resume fluids - glucose control - monitor lytes - monitor sodium - follow urine studies - follow ultrasound - renal function is improving
[2020-05-21 13:41] VITALS: BMI 27.1
--- NOTE | 2020-05-21 14:56 | PN ---
Physical Exam: SUBJECTIVE: Patient seen and examined. Pt. confused. Pt. denies any pain or acute complaints. Pt. states his is in another hospital because of a brain tumor? Pt. does not recall his medications. Pt. microblog. RN was able to get in contact with Pt.'s daughter. Pt. states that he has been having polyuria (4x / night recently). Pt. also states that the day he came in to the ER he did not have anything to eat. Discussed with Pt.'s that Pt. is very confused from yesterday but was having a longer course of increased confusion. Pt. follows with Dr. Valero for Urology. Pt. is non-adherent to home regimen of Januvia and Metformin. Pt. was not on Januvia for some time because he did not refill. Pt.'s younger brother has a history of dementia. OBJECTIVE: Vital Signs Period Temp Pulse Resp BP Sys/Aleman Pulse Ox Last 24 Hr 97.4 F-98 F 64-77 16-18 103-149/56-78 94-100 GENERAL: The patient is awake, alert, and fully oriented, in no acute distress. HEAD: Normal with no signs of trauma. EYES: PERRL, extraocular movements intact, sclera anicteric, conjunctiva clear. ENT: Ears normal, nares patent, oropharynx clear without exudates, dry mucous membranes. NECK: Trachea midline, full range of motion, supple. LUNGS: Breath sounds equal, clear to auscultation bilaterally, no wheezes, no crackles, no accessory muscle use. HEART: Regular rate and rhythm, S1, S2 without murmur, rub or gallop. ABDOMEN: Soft, nontender, nondistended, normoactive bowel sounds, no guarding, no rebound EXTREMITIES: 2+ dorsal pedal pulses, warm, no calf tenderness, well-perfused, no edema. NEUROLOGICAL: Normal speech, gait not observed. PSYCH: Normal mood, normal affect. SKIN: Warm, dry, normal turgor Laboratory Results - last 24 hr 05/20/20 05/20/20 05/20/20 15:30 15:30 18:21 WBC 9.0 RBC 5.45 Hgb 16.1 Hct 48.7 MCV 89.3 MCH 29.6 MCHC 33.1 RDW 14.2 D Plt Count 312 D MPV 8.6 Absolute Neuts (auto) 6.3 Neutrophils % 70.1 Lymphocytes % 18.3 D Monocytes % 10.0 D Eosinophils % 0.8 Basophils % 0.8 Nucleated RBC % 0 VBG pH 7.405 POC VBG pCO2 39.7 POC VBG pO2 49.1 H VBG HCO3 24.3 VBG O2 Sat (Antonio) 85.0 H VBG Base Excess -0.2 Sodium 125 L Potassium 5.4 H Chloride 88 L Carbon Dioxide 25 Anion Gap 13 BUN 39.2 H Creatinine 1.8 H Est GFR (CKD-EPI)AfAm 39.46 Est GFR (CKD-EPI)NonAf 34.05 POC Glucometer Random Glucose 471 H* Serum Osmolality Calcium 9.3 Phosphorus Magnesium Total Bilirubin 0.8 AST 20 ALT 33 Alkaline Phosphatase 107 Creatine Kinase 48 Troponin I < 0.02 Total Protein 8.6 H Albumin 3.2 L Beta-Hydroxybutyrate 10.4 H TSH Urine Color Urine Appearance Urine pH Ur Specific [place] Urine Protein Urine Glucose (UA) Urine Ketones Urine Blood Urine Nitrite Urine Bilirubin Urine Urobilinogen Ur Leukocyte Esterase Urine WBC (Auto) Urine RBC (Auto) Urine Casts (Auto) U Epithel Cells (Auto) Urine Bacteria (Auto) Urine Yeast (Auto) Urine Osmolality Ur Random Creatinine Ur Random Sodium Ur Random Potassium Ur Random Chloride 05/20/20 05/21/20 05/21/20 19:29 02:00 02:00 WBC RBC Hgb Hct MCV MCH MCHC RDW Plt Count MPV Absolute Neuts (auto) Neutrophils % Lymphocytes % Monocytes % Eosinophils % Basophils % Nucleated RBC % VBG pH POC VBG pCO2 POC VBG pO2 VBG HCO3 VBG O2 Sat (Antonio) VBG Base Excess Sodium 132 L Potassium 4.8 Chloride 95 L Carbon Dioxide 27 Anion Gap 10 BUN 38.4 H Creatinine 1.7 H Est GFR (CKD-EPI)AfAm 42.28 Est GFR (CKD-EPI)NonAf 36.48 POC Glucometer Random Glucose 316 H Serum Osmolality 303 Calcium 9.1 Phosphorus Magnesium Total Bilirubin AST ALT Alkaline Phosphatase Creatine Kinase Troponin I < 0.02 Total Protein Albumin Beta-Hydroxybutyrate TSH 0.92 Urine Color Red Urine Appearance Turbid Urine pH 5.5 Ur Specific [place] 1.024 Urine Protein 2+ H Urine Glucose (UA) 3+ H Urine Ketones Trace H Urine Blood 3+ H Urine Nitrite Positive H Urine Bilirubin 1+ H Urine Urobilinogen 1.0 Ur Leukocyte Esterase 3+ H Urine WBC (Auto) 3298 Urine RBC (Auto) 04482 Urine Casts (Auto) 16 U Epithel Cells (Auto) 12 Urine Bacteria (Auto) >9,000 Urine Yeast (Auto) None seen Urine Osmolality 609 Ur Random Creatinine 64.0 Ur Random Sodium 39 L Ur Random Potassium 41.0 Ur Random Chloride 29 L 05/21/20 05/21/20 05/21/20 06:10 06:12 06:12 WBC 6.8 RBC 5.15 Hgb 15.6 Hct 45.6 MCV 88.5 MCH 30.2 MCHC 34.2 RDW 14.2 Plt Count 284 MPV 8.4 Absolute Neuts (auto) 4.2 Neutrophils % 61.7 Lymphocytes % 27.5 D Monocytes % 9.1 Eosinophils % 1.1 Basophils % 0.6 Nucleated RBC % 0 VBG pH POC VBG pCO2 POC VBG pO2 VBG HCO3 VBG O2 Sat (Antonio) VBG Base Excess Sodium 132 L Potassium 4.9 Chloride 93 L Carbon Dioxide 28 Anion Gap 11 BUN 36.1 H Creatinine 1.6 H Est GFR (CKD-EPI)AfAm 45.50 Est GFR (CKD-EPI)NonAf 39.26 POC Glucometer 356 Random Glucose 332 H Serum Osmolality Calcium 9.3 Phosphorus 3.5 Magnesium 2.5 H Total Bilirubin 0.8 AST 15 ALT 28 Alkaline Phosphatase 104 Creatine Kinase Troponin I Total Protein 8.5 H Albumin 3.2 L Beta-Hydroxybutyrate TSH Urine Color Urine Appearance Urine pH Ur Specific [place] Urine Protein Urine Glucose (UA) Urine Ketones Urine Blood Urine Nitrite Urine Bilirubin Urine Urobilinogen Ur Leukocyte Esterase Urine WBC (Auto) Urine RBC (Auto) Urine Casts (Auto) U Epithel Cells (Auto) Urine Bacteria (Auto) Urine Yeast (Auto) Urine Osmolality Ur Random Creatinine Ur Random Sodium Ur Random Potassium Ur Random Chloride 05/21/20 10:52 WBC RBC Hgb Hct MCV MCH MCHC RDW Plt Count MPV Absolute Neuts (auto) Neutrophils % Lymphocytes % Monocytes % Eosinophils % Basophils % Nucleated RBC % VBG pH POC VBG pCO2 POC VBG pO2 VBG HCO3 VBG O2 Sat (Antonio) VBG Base Excess Sodium Potassium Chloride Carbon Dioxide Anion Gap BUN Creatinine Est GFR (CKD-EPI)AfAm Est GFR (CKD-EPI)NonAf POC Glucometer 328 Random Glucose Serum Osmolality Calcium Phosphorus Magnesium Total Bilirubin AST ALT Alkaline Phosphatase Creatine Kinase Troponin I Total Protein Albumin Beta-Hydroxybutyrate TSH Urine Color Urine Appearance Urine pH Ur Specific [place] Urine Protein Urine Glucose (UA) Urine Ketones Urine Blood Urine Nitrite Urine Bilirubin Urine Urobilinogen Ur Leukocyte Esterase Urine WBC (Auto) Urine RBC (Auto) Urine Casts (Auto) U Epithel Cells (Auto) Urine Bacteria (Auto) Urine Yeast (Auto) Urine Osmolality Ur Random Creatinine Ur Random Sodium Ur Random Potassium Ur Random Chloride Active Medications Generic Name Dose Route Start Last Admin Trade Name Freq PRN Reason Stop Dose Admin Aspirin 81 mg 05/21/20 10:00 05/21/20 11:29 Asa - PO 81 mg DAILY CORRIE Administration Atorvastatin Calcium 80 mg 05/21/20 22:00 Lipitor - PO HS CORRIE Finasteride 5 mg 05/21/20 10:00 05/21/20 11:29 Proscar - PO 5 mg DAILY CORRIE Administration Heparin Sodium (Porcine) 5,000 unit 05/20/20 22:00 05/21/20 06:13 Heparin - SQ 5,000 unit TID CORRIE Administration Sodium Chloride 1,000 mls @ 100 mls/hr 05/21/20 09:45 05/21/20 11:28 Normal Saline - IV 100 mls/hr ASDIR CORRIE Administration Ceftriaxone Sodium 1 gm/ 50 mls @ 100 mls/hr 05/21/20 10:00 05/21/20 11:29 Dextrose IVPB 100 mls/hr DAILY CORRIE Administration Insulin Aspart 1 vial 05/21/20 07:00 05/21/20 11:29 Novolog Vial Sliding Scale - SQ 8 unit ACHS CORRIE Administration Protocol Insulin Detemir 8 units 05/21/20 10:00 05/21/20 11:29 Levemir Vial SQ 8 units BID CORRIE Administration Non-Formulary Medication 60 mg 05/21/20 10:00 Propranolol Hcl [Propranolol Hcl] PO DAILY CORRIE Tamsulosin HCl 0.4 mg 05/21/20 10:00 05/21/20 11:29 Flomax - PO 0.4 mg DAILY@0830 CORRIE Administration ASSESSMENT/PLAN: Pt. is an 84 y.o. M w/ PMHx. of [place] s/p CABG (~35 years ago), HTN, HLD, NIDDM, and BPH who presented with dizziness and lightheadedness, ED workup showed initial glucose 471 and BUN/Cr 39.2/1.8 and patient was admitted for hyperglycemia and LONG. #Metabolic Encephalopathy 2/2 Hyperglycemia 2/2 uncontrolled DM normal pH, likely due to noncompliance (starvation ketosis, uncontrolled DM) initial glucose 471 (repeat 316), anion gap 13 (repeat 10), b-hydroxybutyrate 10.4, VBG pH 7.4 received: NS 1L, Novolog 6U IVP, 125cc/h NS ISS + BGM ACHS f/u A1C IVF Levemir 8 units BID Neurology Consult appreciated #LONG -improving - likely due to dehydration from osmotic diuresis and UTI BUN 36.1, Cr 1.6 today (baseline ~ 1.2 - 1.3) nephrology consult appreciated recs: fluids, urine lytes, renal US, urine and plasma osm, TSH, am cortisol #UTI UA reviewed will treat with IV Ceftriaxone #HTN - resume home meds when indicated #HLD - resume home statin #[place] s/p CABG - resume home aspirin and statin #BPH - continue home tamsulosin and finasteride #FEN - 100cc/h NS - replete lytes PRN - diabetic controlled diet #Dispo: continue monitoring patient in telemetry Visit type - Emergency Visit Emergency Visit: Yes ED Registration Date: 05/20/20 Care time: The patient presented to the Emergency Department on the above date and was hospitalized for further evaluation of their emergent condition. - New Patient This patient is new to me today: Yes Date on this admission: 05/21/20 - Critical Care Critical Care patient: No - Discharge Referral Referred to [facility] Med [facility] No - Medication Review Med list reviewed for High Risk Meds patients 65 and older: Yes ATTENDING PHYSICIAN STATEMENT I saw and evaluated the patient. I reviewed the resident's note and discussed the case with the resident. I agree with the resident's findings and plan as documented. SUBJECTIVE: OBJECTIVE: ASSESSMENT AND PLAN:
--- NOTE | 2020-05-21 16:50 | PN ---
Teaching Attending Note Name of Resident: Nestor Munoz ATTENDING PHYSICIAN STATEMENT I saw and evaluated the patient. I reviewed the resident's note and discussed the case with the resident. I agree with the resident's findings and plan as documented. SUBJECTIVE: Patient seen and examined at bedside, admitted for AMS/hyperglycemia/UTi, family concerned for new onset dementia. VSS. OBJECTIVE: GENERAL: AAox1, confused HEENT NC/AT, neck supple, dry MM LUNGS: CTAB, no wheezing appreciated HEART: RRR, S1 S2 without murmurs ABDOMEN: Soft, nontender, not distended, active bowel sounds, sternal scar MUSCULOSKELETAL: Normal range of motion at all joints, walking without difficulties EXTREMITIES: radial pulses easily palpable, dorsalis pedis not palpable, UEs warm to touch, feet cold to touch, no peripheral edema noted NEUROLOGICAL: Cranial nerves II-XII grossly intact, normal speech, normal gait, sensation intact including toes PSYCHIATRIC: Cooperative. Good eye contact. confused Vital Signs - 24 hr 05/21/20 05/21/20 05/21/20 01:56 06:37 09:00 Temperature 98 F Pulse Rate Pulse Rate [ 77 64 Left] Respiratory 18 18 18 Rate Blood Pressure Blood Pressure 103/56 L 129/67 [Right Arm] O2 Sat by Pulse 97 96 99 Oximetry (%) 05/21/20 05/21/20 10:00 13:23 Temperature 97.4 F L 97.5 F L Pulse Rate 68 66 Pulse Rate [ Left] Respiratory 18 16 Rate Blood Pressure 149/78 122/75 Blood Pressure [Right Arm] O2 Sat by Pulse 99 94 L Oximetry (%) Laboratory Results - last 24 hr 05/20/20 05/20/20 05/20/20 15:30 15:30 18:21 WBC 9.0 RBC 5.45 Hgb 16.1 Hct 48.7 MCV 89.3 MCH 29.6 MCHC 33.1 RDW 14.2 D Plt Count 312 D MPV 8.6 Absolute Neuts (auto) 6.3 Neutrophils % 70.1 Lymphocytes % 18.3 D Monocytes % 10.0 D Eosinophils % 0.8 Basophils % 0.8 Nucleated RBC % 0 VBG pH 7.405 POC VBG pCO2 39.7 POC VBG pO2 49.1 H VBG HCO3 24.3 VBG O2 Sat (Antonio) 85.0 H VBG Base Excess -0.2 Sodium 125 L Potassium 5.4 H Chloride 88 L Carbon Dioxide 25 Anion Gap 13 BUN 39.2 H Creatinine 1.8 H Est GFR (CKD-EPI)AfAm 39.46 Est GFR (CKD-EPI)NonAf 34.05 POC Glucometer Random Glucose 471 H* Hemoglobin A1c % Serum Osmolality Calcium 9.3 Phosphorus Magnesium Total Bilirubin 0.8 AST 20 ALT 33 Alkaline Phosphatase 107 Creatine Kinase 48 Troponin I < 0.02 Total Protein 8.6 H Albumin 3.2 L Triglycerides Cholesterol Total LDL Cholesterol HDL Cholesterol Beta-Hydroxybutyrate 10.4 H TSH Urine Color Urine Appearance Urine pH Ur Specific [place] Urine Protein Urine Glucose (UA) Urine Ketones Urine Blood Urine Nitrite Urine Bilirubin Urine Urobilinogen Ur Leukocyte Esterase Urine WBC (Auto) Urine RBC (Auto) Urine Casts (Auto) U Epithel Cells (Auto) Urine Bacteria (Auto) Urine Yeast (Auto) Urine Osmolality Ur Random Creatinine Ur Random Sodium Ur Random Potassium Ur Random Chloride 05/20/20 05/21/20 05/21/20 19:29 02:00 02:00 WBC RBC Hgb Hct MCV MCH MCHC RDW Plt Count MPV Absolute Neuts (auto) Neutrophils % Lymphocytes % Monocytes % Eosinophils % Basophils % Nucleated RBC % VBG pH POC VBG pCO2 POC VBG pO2 VBG HCO3 VBG O2 Sat (Antonio) VBG Base Excess Sodium 132 L Potassium 4.8 Chloride 95 L Carbon Dioxide 27 Anion Gap 10 BUN 38.4 H Creatinine 1.7 H Est GFR (CKD-EPI)AfAm 42.28 Est GFR (CKD-EPI)NonAf 36.48 POC Glucometer Random Glucose 316 H Hemoglobin A1c % Serum Osmolality 303 Calcium 9.1 Phosphorus Magnesium Total Bilirubin AST ALT Alkaline Phosphatase Creatine Kinase Troponin I < 0.02 Total Protein Albumin Triglycerides Cholesterol Total LDL Cholesterol HDL Cholesterol Beta-Hydroxybutyrate TSH 0.92 Urine Color Red Urine Appearance Turbid Urine pH 5.5 Ur Specific [place] 1.024 Urine Protein 2+ H Urine Glucose (UA) 3+ H Urine Ketones Trace H Urine Blood 3+ H Urine Nitrite Positive H Urine Bilirubin 1+ H Urine Urobilinogen 1.0 Ur Leukocyte Esterase 3+ H Urine WBC (Auto) 3298 Urine RBC (Auto) 41928 Urine Casts (Auto) 16 U Epithel Cells (Auto) 12 Urine Bacteria (Auto) >9,000 Urine Yeast (Auto) None seen Urine Osmolality 609 Ur Random Creatinine 64.0 Ur Random Sodium 39 L Ur Random Potassium 41.0 Ur Random Chloride 29 L 05/21/20 05/21/20 05/21/20 06:10 06:12 06:12 WBC 6.8 RBC 5.15 Hgb 15.6 Hct 45.6 MCV 88.5 MCH 30.2 MCHC 34.2 RDW 14.2 Plt Count 284 MPV 8.4 Absolute Neuts (auto) 4.2 Neutrophils % 61.7 Lymphocytes % 27.5 D Monocytes % 9.1 Eosinophils % 1.1 Basophils % 0.6 Nucleated RBC % 0 VBG pH POC VBG pCO2 POC VBG pO2 VBG HCO3 VBG O2 Sat (Antonio) VBG Base Excess Sodium 132 L Potassium 4.9 Chloride 93 L Carbon Dioxide 28 Anion Gap 11 BUN 36.1 H Creatinine 1.6 H Est GFR (CKD-EPI)AfAm 45.50 Est GFR (CKD-EPI)NonAf 39.26 POC Glucometer 356 Random Glucose 332 H Hemoglobin A1c % Serum Osmolality Calcium 9.3 Phosphorus 3.5 Magnesium 2.5 H Total Bilirubin 0.8 AST 15 ALT 28 Alkaline Phosphatase 104 Creatine Kinase Troponin I Total Protein 8.5 H Albumin 3.2 L Triglycerides 97 Cholesterol 149 Total LDL Cholesterol 88 HDL Cholesterol 47 Beta-Hydroxybutyrate TSH 1.18 D Urine Color Urine Appearance Urine pH Ur Specific [place] Urine Protein Urine Glucose (UA) Urine Ketones Urine Blood Urine Nitrite Urine Bilirubin Urine Urobilinogen Ur Leukocyte Esterase Urine WBC (Auto) Urine RBC (Auto) Urine Casts (Auto) U Epithel Cells (Auto) Urine Bacteria (Auto) Urine Yeast (Auto) Urine Osmolality Ur Random Creatinine Ur Random Sodium Ur Random Potassium Ur Random Chloride 05/21/20 05/21/20 10:52 15:30 WBC RBC Hgb Hct MCV MCH MCHC RDW Plt Count MPV Absolute Neuts (auto) Neutrophils % Lymphocytes % Monocytes % Eosinophils % Basophils % Nucleated RBC % VBG pH POC VBG pCO2 POC VBG pO2 VBG HCO3 VBG O2 Sat (Antonio) VBG Base Excess Sodium Potassium Chloride Carbon Dioxide Anion Gap BUN Creatinine Est GFR (CKD-EPI)AfAm Est GFR (CKD-EPI)NonAf POC Glucometer 328 Random Glucose Hemoglobin A1c % 12.8 H Serum Osmolality Calcium Phosphorus Magnesium Total Bilirubin AST ALT Alkaline Phosphatase Creatine Kinase Troponin I Total Protein Albumin Triglycerides Cholesterol Total LDL Cholesterol HDL Cholesterol Beta-Hydroxybutyrate TSH Urine Color Urine Appearance Urine pH Ur Specific [place] Urine Protein Urine Glucose (UA) Urine Ketones Urine Blood Urine Nitrite Urine Bilirubin Urine Urobilinogen Ur Leukocyte Esterase Urine WBC (Auto) Urine RBC (Auto) Urine Casts (Auto) U Epithel Cells (Auto) Urine Bacteria (Auto) Urine Yeast (Auto) Urine Osmolality Ur Random Creatinine Ur Random Sodium Ur Random Potassium Ur Random Chloride Home Medications Medication Instructions Recorded Aspirin 81 mg PO DAILY 05/20/20 Atorvastatin Ca [Lipitor] 80 mg PO DAILY 05/20/20 Januvia 100 mg PO DAILY 05/20/20 Propranolol HCl 60 mg PO DAILY 05/20/20 Tamsulosin HCl 0.4 mg PO DAILY 05/20/20 metFORMIN HCL [Metformin HCl] 850 mg PO BID 05/20/20 Ezetimibe [Zetia] 10 mg PO DAILY 05/21/20 Finasteride 5 mg PO DAILY 05/21/20 Current Medications Generic Name Dose Route Start Last Admin Trade Name Freq PRN Reason Stop Dose Admin Aspirin 81 mg 05/21/20 10:00 05/21/20 11:29 Asa - PO 81 mg DAILY CORRIE Administration Atorvastatin Calcium 80 mg 05/21/20 22:00 Lipitor - PO HS CORRIE Ezetimibe 10 mg 05/22/20 10:00 Zetia - PO DAILY CORRIE Finasteride 5 mg 05/21/20 10:00 05/21/20 11:29 Proscar - PO 5 mg DAILY CORRIE Administration Heparin Sodium (Porcine) 5,000 unit 05/20/20 22:00 05/21/20 15:01 Heparin - SQ 5,000 unit TID CORRIE Administration Sodium Chloride 1,000 mls @ 100 mls/hr 05/21/20 09:45 05/21/20 11:28 Normal Saline - IV 100 mls/hr ASDIR CORRIE Administration Ceftriaxone Sodium 1 gm/ 50 mls @ 100 mls/hr 05/21/20 10:00 05/21/20 11:29 Dextrose IVPB 100 mls/hr DAILY CORRIE Administration Insulin Aspart 1 vial 05/21/20 07:00 05/21/20 11:29 Novolog Vial Sliding Scale - SQ 8 unit ACHS CORRIE Administration Protocol Insulin Detemir 8 units 05/21/20 10:00 05/21/20 11:29 Levemir Vial SQ 8 units BID CORRIE Administration Propranolol HCl 60 mg 05/22/20 10:00 Inderal La - PO DAILY [facility] Tamsulosin HCl 0.4 mg 05/21/20 10:00 05/21/20 11:29 Flomax - PO 0.4 mg DAILY@0830 [facility] Administration ASSESSMENT AND PLAN: 84 M Uncontrolled T2Dm with HHS HTN HLD ?new onset dementia UTI Metabolic encephalopathy BPH Plan: IV hydration, Levemir BID to control BG, TID fast acting Send dementia workup, obtain Head CT to r/o bleed, Neurology evaluation cont. BP meds DVT ppx heparin SC
--- NOTE | 2020-05-21 17:58 | CON.NEURO ---
Consult Consult Specialty:: [facility] Referred by:: Elba - History of Present Illness History of Present Illness: this is a very pleasant 84-year-old right-handed man with a past medical history significant for Coronary artery disease Hypertension Osteoarthritis Benign prostatic hypertrophy Chronic low back pain diabetes Patient came into the hospital with chief complaint of dizziness and lightheadedness. Neurology was called in today to evaluate the patient with a chief complaint of increasing difficulty with memory. Patient himself is not aware of what: Patient denies any history of head trauma patient was seen on the floorpatient had a CAT scan of the head I reviewed the images which showed mild ischemic Lyrica changes with no evidence of acute stroke - History Source History Provided By: Patient, Significant Other, Transfer Record Limitations to Obtaining History: Clinical Condition - Past Medical History Cardio/Vascular: Yes: HTN, Hyperlipdemia Endocrine: Yes: Diabetes Mellitus - Alcohol/Substance Use Hx Alcohol Use: No - Smoking History Smoking history: Never smoked Have you smoked in the past 12 months: No Aproximately how many cigarettes per day: 0 Home Medications - Allergies Allergies/Adverse Reactions: Allergies Allergy/AdvReac Type Severity Reaction Status Date / Time No Known Allergies Allergy Verified 05/20/20 15:15 - Home Medications Home Medications: Ambulatory Orders Aspirin 81 mg PO DAILY 05/20/20 Atorvastatin Ca [Lipitor] 80 mg PO DAILY 05/20/20 Januvia 100 mg PO DAILY 05/20/20 Propranolol HCl 60 mg PO DAILY 05/20/20 Tamsulosin HCl 0.4 mg PO DAILY 05/20/20 metFORMIN HCL [Metformin HCl] 850 mg PO BID 05/20/20 Ezetimibe [Zetia] 10 mg PO DAILY 05/21/20 Finasteride 5 mg PO DAILY 05/21/20 Family Medical History Family History: Unable to Obtain, Denies Review of Systems - Review of Systems Constitutional: reports: No Symptoms Eyes: reports: No Symptoms HENT: reports: No Symptoms Neurological: reports: Confusion, Dizziness, Headache, Parasthesia Physical Exam-Neuro Vital Signs: Vital Signs Temperature 97.5 F L 05/21/20 13:23 Pulse Rate 66 05/21/20 13:23 Respiratory Rate 16 05/21/20 13:23 Blood Pressure 122/75 05/21/20 13:23 O2 Sat by Pulse Oximetry (%) 94 L 05/21/20 13:23 Constitutional: Yes: Well Nourished Neck: Yes: WNL Cardiovascular: Yes: WNL Respiratory: Yes: WNL Labs: CBC, BMP 05/21/20 06:12 05/21/20 06:12 - Neuro Exam Level Of Consciousness: Yes: Oriented to Person, Oriented to Place, Oriented to Time Eyes: Yes: PERRLA Speech: Garbled Mini Mental Exam: 22 Cranial Nerves II-XII Intact: Yes Gag: Present DTR's: 1+ Left Bicep, 1+ Right Bicep, 1+ Left Tricep, 1+ Right Tricep Response to light touch: Normal Response to pain prick: Normal Response to temperature: Normal Motor Strength: 3/5: Left Arm, Right Arm, Left Leg, Right Leg Gait: Deferred Imaging - Results Cat Scan: Image Reviewed Problem List - Problems (1) Dementia Code(s): F03.90 - UNSPECIFIED DEMENTIA WITHOUT BEHAVIORAL DISTURBANCE (2) Lightheaded Code(s): R42 - DIZZINESS AND GIDDINESS (3) Dehydration Code(s): E86.0 - DEHYDRATION (4) Dizziness Code(s): R42 - DIZZINESS AND GIDDINESS Assessment/Plan . Neuro checks every 1 hour. 2. MRI of the brain with no contrast. 3. Blood work that included RPR B12 TCH free T4. 4. Trial of Namenda 5 mg twice daily. 5. Check orthostasis every shift. Into very much for allowing me to be part of this patient's neurological care. Chavez Moscoso and stefany [phone]
[2020-05-21] MEDS ORDERED: INSULIN (LEVEMIR) 100 UNITS/ML UNITS SQ SCH (22:00)
[2020-05-21] MEDS: ATORVASTATIN CA 80 MG TABLET (FP) PO SCH (22:13)
[2020-05-22] MEDS: INSULIN SLIDING SCALE (NOVOLOG) 1 VIAL SQ SCH ×5 (06:48→21:39)
[2020-05-22] MEDS: HEPARIN NA (PORCINE) 5,000 UNITS/ML 1ML VIAL SQ SCH ×3 (06:49→21:39)
[2020-05-22] MEDS ORDERED: PT OWN MED DRAWER 7, Y5N ONE (09:10)
[2020-05-22] MEDS ORDERED: cefTRIAXone SODIUM 1 GM VIAL ONE (09:10)
[2020-05-22] MEDS ORDERED: DEXTROSE 5%-WATER - 50 ML IVPB ONE (09:10)
[2020-05-22] MEDS: ASPIRIN 81 MG CHEWABLE TABLETS PO SCH (09:14)
[2020-05-22] MEDS: TAMSULOSIN HCL 0.4 MG CAP PO SCH (09:14)
[2020-05-22] MEDS: FINASTERIDE 5 MG TABLET (FP) PO SCH (09:14)
[2020-05-22] MEDS: CEFTRIAXONE 1 GM in DEXTROSE 5%-WATER - 50 ML IVPB SCH (09:14)
[2020-05-22] MEDS: EZETIMIBE 10 MG TABLET (FP) PO SCH (09:14)
[2020-05-22] MEDS: INSULIN (LEVEMIR) 100 UNITS/ML UNITS SQ SCH ×2 (09:15→21:39)
[2020-05-22] MEDS: SODIUM CHLORIDE 1,000 ML IV SCH (09:15)
[2020-05-22 10:55] LABS: EOS % 1.4 % (0-4.5); HEMATOCRIT 39.9 % (35.4-49); HEMOGLOBIN 13.6 GM/dL (11.7-16.9); LYMPH % 22.4 % (8-40); MCH 30.1 pg (25.7-33.7); MCHC 34.1 g/dl (32.0-35.9); MEAN CELL VOLUME 88.4 fl (80-96); MEAN PLT VOLUME 8.2 fl (7.5-11.1); MONO % 9.7 % (3.8-10.2); NEUT % 65.5 % (42.8-82.8); PLATELET COUNT 218 K/MM3 (134-434); RBC 4.52 M/mm3 (4.00-5.60); RDW 14.4 % (11.9-15.9); WHITE BLOOD COUNT 7.5 K/mm3 (4.0-10.0)
--- NOTE | 2020-05-22 11:08 | CON.ID ---
Consult Consult Specialty:: infectious diseases Referred by:: Reason for Consultation:: uti - History of Present Illness Chief Complaint: weakness,dizziness,lighthead History of Present Illness: 84yo M with PMH of [place] s/p CABG , HTN, HLD, NIDDM, and BPH who presented upon 's request with dizziness and lightheadedness. Patient explained that this occasionally happens to him and has been going on for a couple of days. He said the symptoms come and go, are more noticeable when he is moving around. Per telephone conversation with his , she took away his car keys when she noticed that he was "weak". Patient said that he now feels his normal self, and denied any associated symptoms including headaches, vertigo, CP, SOB, abdominal pain, weakness, NVD, constipation, dysuria polyuria. He explained that he had po lyuria in the past when he would eat too many sweets. the above was the history on admission and also patient mentions that a month back or so he was having increased frequency in urine patient was worked up and found to have urinary tract infection - History Source History Provided By: Patient Limitations to Obtaining History: No Limitations - Past Medical History Cardio/Vascular: Yes: HTN, Hyperlipdemia Endocrine: Yes: Diabetes Mellitus - Alcohol/Substance Use Hx Alcohol Use: No - Smoking History Smoking history: Never smoked Have you smoked in the past 12 months: No Aproximately how many cigarettes per day: 0 Home Medications - Allergies Allergies/Adverse Reactions: Allergies Allergy/AdvReac Type Severity Reaction Status Date / Time No Known Allergies Allergy Verified 05/20/20 15:15 - Home Medications Home Medications: Ambulatory Orders Aspirin 81 mg PO DAILY 05/20/20 Atorvastatin Ca [Lipitor] 80 mg PO DAILY 05/20/20 Januvia 100 mg PO DAILY 05/20/20 Propranolol HCl 60 mg PO DAILY 05/20/20 Tamsulosin HCl 0.4 mg PO DAILY 05/20/20 metFORMIN HCL [Metformin HCl] 850 mg PO BID 05/20/20 Ezetimibe [Zetia] 10 mg PO DAILY 05/21/20 Finasteride 5 mg PO DAILY 05/21/20 Family Medical History Family History: Unable to Obtain, Denies Review of Systems - Review of Systems Constitutional: reports: Weakness Eyes: reports: No Symptoms HENT: reports: No Symptoms Neck: reports: No Symptoms Cardiovascular: reports: No Symptoms Respiratory: reports: No Symptoms Gastrointestinal: reports: No Symptoms Genitourinary: reports: Urgency Musculoskeletal: reports: No Symptoms Integumentary: reports: No Symptoms Neurological: reports: Dizziness Endocrine: reports: No Symptoms Hematology/Lymphatic: reports: No Symptoms Psychiatric: reports: No Symptoms Physical Exam Vital Signs: Vital Signs Temperature 98.3 F 05/22/20 06:00 Pulse Rate 91 H 05/22/20 06:00 Respiratory Rate 18 05/22/20 06:00 Blood Pressure 113/66 05/22/20 06:00 O2 Sat by Pulse Oximetry (%) 95 05/22/20 06:00 Constitutional: Yes: No Distress, Calm Eyes: Yes: Conjunctiva Clear HENT: Yes: Atraumatic, Normocephalic Neck: Yes: Supple, Trachea Midline Cardiovascular: Yes: Regular Rate and Rhythm Respiratory: Yes: Regular, CTA Bilaterally Gastrointestinal: Yes: Normal Bowel Sounds, Soft Musculoskeletal: Yes: WNL Extremities: Yes: WNL Neurological: Yes: Alert, Oriented Psychiatric: Yes: Alert, Oriented Labs: CBC, BMP 05/22/20 10:28 Imaging - Results Chest X-ray: Report Reviewed, Image Reviewed Cat Scan: Report Reviewed, Image Reviewed Ultrasound: Report Reviewed, Image Reviewed Assessment/Plan 84 y.o. M w/ PMHx. of [place] s/p CABG (~35 years ago), HTN, HLD, NIDDM, and BPH who presented with dizziness and lightheadedness, ED workup showed initial glucose 471 and BUN/Cr 39.2/1.8 and patient was admitted for hyperglycemia and LONG. dm metabolic encephalopathy long uti htn hld uti plan neurology on case continue abx await for identification of the organism rest as per the team
--- NOTE | 2020-05-22 11:13 | PN ---
Progress Note, Physician History of Present Illness: Pt seen and examined at bedside. He is awake and alert. he denies shortness of breath. - Current Medication List Current Medications: Active Medications Aspirin (Asa -) 81 mg PO DAILY [facility] Last Admin: 05/22/20 09:14 Dose: 81 mg Documented by: Atorvastatin Calcium (Lipitor -) 80 mg PO HS [facility] Last Admin: 05/21/20 22:13 Dose: 80 mg Documented by: Ezetimibe (Zetia -) 10 mg PO DAILY [facility] Last Admin: 05/22/20 09:14 Dose: 10 mg Documented by: Finasteride (Proscar -) 5 mg PO DAILY [facility] Last Admin: 05/22/20 09:14 Dose: 5 mg Documented by: Heparin Sodium (Porcine) (Heparin -) 5,000 unit SQ TID [facility] Last Admin: 05/22/20 06:49 Dose: 5,000 unit Documented by: Ceftriaxone Sodium 1 gm/ (Dextrose) 50 mls @ 100 mls/hr IVPB DAILY [facility] Last Admin: 05/22/20 09:14 Dose: 100 mls/hr Documented by: Insulin Aspart (Novolog Vial Sliding Scale -) 1 vial SQ ACHS [facility]; Protocol Last Admin: 05/22/20 06:48 Dose: Not Given Documented by: Insulin Detemir (Levemir Vial) 8 units SQ BID [facility] Last Admin: 05/22/20 09:15 Dose: 8 units Documented by: Propranolol HCl (Inderal La -) 60 mg PO DAILY [facility] Last Admin: 05/22/20 09:14 Dose: 60 mg Documented by: Tamsulosin HCl (Flomax -) 0.4 mg PO DAILY@0830 [facility] Last Admin: 05/22/20 09:14 Dose: 0.4 mg Documented by: - Objective Vital Signs: Vital Signs Temperature 98.3 F 05/22/20 06:00 Pulse Rate 91 H 05/22/20 06:00 Respiratory Rate 18 05/22/20 06:00 Blood Pressure 113/66 05/22/20 06:00 O2 Sat by Pulse Oximetry (%) 95 05/22/20 06:00 Constitutional: Yes: Calm Eyes: Yes: Conjunctiva Clear HENT: Yes: Atraumatic Neck: Yes: Supple Cardiovascular: Yes: S1, S2 Respiratory: Yes: CTA Bilaterally Gastrointestinal: Yes: Soft Genitourinary: Yes: WNL Extremities: Yes: WNL Edema: No Neurological: Yes: Oriented Psychiatric: Yes: Oriented Labs: CBC, [facility] 05/22/20 10:28 Problem List - Problems (1) Lightheaded Code(s): R42 - DIZZINESS AND GIDDINESS (2) Dehydration Code(s): E86.0 - DEHYDRATION (3) Hyperglycemia Code(s): R73.9 - HYPERGLYCEMIA, UNSPECIFIED Assessment/Plan Current Medications Generic Name Dose Route Start Last Admin Trade Name Lillian PRN Reason Stop Dose Admin Aspirin 81 mg 05/21/20 10:00 05/22/20 09:14 Asa - PO 81 mg DAILY [facility] Administration Atorvastatin Calcium 80 mg 05/21/20 22:00 05/21/20 22:13 Lipitor - PO 80 mg HS [facility] Administration Ezetimibe 10 mg 05/22/20 10:00 05/22/20 09:14 Zetia - PO 10 mg DAILY [facility] Administration Finasteride 5 mg 05/21/20 10:00 05/22/20 09:14 Proscar - PO 5 mg DAILY [facility] Administration Heparin Sodium (Porcine) 5,000 unit 05/20/20 22:00 05/22/20 06:49 Heparin - SQ 5,000 unit TID [facility] Administration Ceftriaxone Sodium 1 gm/ 50 mls @ 100 mls/hr 05/21/20 10:00 05/22/20 09:14 Dextrose IVPB 100 mls/hr DAILY [facility] Administration Insulin Aspart 1 vial 05/21/20 07:00 05/22/20 06:48 Novolog Vial Sliding Scale - SQ Not Given ACHS [facility] Protocol Insulin Detemir 8 units 05/21/20 10:00 05/22/20 09:15 Levemir Vial SQ 8 units BID [facility] Administration Propranolol HCl 60 mg 05/22/20 10:00 05/22/20 09:14 Inderal La - PO 60 mg DAILY [facility] Administration Tamsulosin HCl 0.4 mg 05/21/20 10:00 05/22/20 09:14 Flomax - PO 0.4 mg DAILY@0830 [facility] Administration Impression 1. larry 2. hyperglycemia 3. dm 4. hyponatremia 5. hyperkalemia 6. htn 7. cabg 8. bph 9. ckd Plan - follow up bmp - cont fluids - renal function had been improving - monitor blood sugar - pt likely with ckd as there is cortical atrophy on ultrasound
[2020-05-22 11:21] LABS: ALBUMIN 2.6 g/dl (3.4-5.0); BILIRUBIN,TOTAL 0.4 mg/dL (0.2-1); BLOOD UREA NITROGEN 26.9 mg/dL (7-18); CALCIUM 8.2 mg/dL (8.5-10.1); CREATININE 1.2 mg/dL (0.55-1.3); MAGNESIUM 2.2 mg/dL (1.8-2.4); POTASSIUM 3.7 mmol/L (3.5-5.1)
[2020-05-22 11:34] LABS: TOT PROT 6.4 g/dl (6.4-8.2)
[2020-05-22] MEDS ORDERED: INSULIN (NOVOLOG) ASPART 100 UNITS/ML 10ML VIAL ONE (11:37)
[2020-05-22] MEDS ORDERED: INSULIN (LEVEMIR) 100 UNITS/ML UNITS SQ ONE (11:38)
--- NOTE | 2020-05-22 14:46 | PN ---
Progress Note, Physician History of Present Illness: events noted Chart reviewed. No report of any agitation or dizziness. Neurology workup is in progress. Seen by nephrology - Current Medication List Current Medications: Active Medications Aspirin (Asa -) 81 mg PO DAILY [facility] Last Admin: 05/22/20 09:14 Dose: 81 mg Documented by: Atorvastatin Calcium (Lipitor -) 80 mg PO HS [facility] Last Admin: 05/21/20 22:13 Dose: 80 mg Documented by: Ezetimibe (Zetia -) 10 mg PO DAILY [facility] Last Admin: 05/22/20 09:14 Dose: 10 mg Documented by: Finasteride (Proscar -) 5 mg PO DAILY [facility] Last Admin: 05/22/20 09:14 Dose: 5 mg Documented by: Heparin Sodium (Porcine) (Heparin -) 5,000 unit SQ TID [facility] Last Admin: 05/22/20 06:49 Dose: 5,000 unit Documented by: Ceftriaxone Sodium 1 gm/ (Dextrose) 50 mls @ 100 mls/hr IVPB DAILY [facility] Last Admin: 05/22/20 09:14 Dose: 100 mls/hr Documented by: Insulin Aspart (Novolog Vial Sliding Scale -) 1 vial SQ ACHS [facility]; Protocol Last Admin: 05/22/20 11:40 Dose: 6 unit Documented by: Insulin Detemir (Levemir Vial) 8 units SQ BID [facility] Last Admin: 05/22/20 09:15 Dose: 8 units Documented by: Propranolol HCl (Inderal La -) 60 mg PO DAILY [facility] Last Admin: 05/22/20 09:14 Dose: 60 mg Documented by: Tamsulosin HCl (Flomax -) 0.4 mg PO DAILY@0830 [facility] Last Admin: 05/22/20 09:14 Dose: 0.4 mg Documented by: - Objective Vital Signs: Vital Signs Temperature 97.6 F 05/22/20 10:00 Pulse Rate 80 05/22/20 10:00 Respiratory Rate 18 05/22/20 10:00 Blood Pressure 110/65 05/22/20 10:00 O2 Sat by Pulse Oximetry (%) 95 05/22/20 10:00 Constitutional: Yes: Well Nourished Eyes: Yes: WNL Neurological: Yes: Alert, Oriented, Babinski positive, Cran Nerves II-XII Intact ...Motor Strength: WNL Labs: CBC, BMP 05/22/20 10:28 08/26/20 10:28 Problem List - Problems (1) Dementia Assessment/Plan: follow-up with urology regarding the usage of Tamsulin 4 precautions. Follow-up the blood work. MRI of the brain with no contrast Code(s): F03.90 - UNSPECIFIED DEMENTIA WITHOUT BEHAVIORAL DISTURBANCE (2) Lightheaded Code(s): R42 - DIZZINESS AND GIDDINESS (3) Dehydration Code(s): E86.0 - DEHYDRATION (4) Dizziness Code(s): R42 - DIZZINESS AND GIDDINESS
--- NOTE | 2020-05-22 15:52 | PN ---
Physical Exam: SUBJECTIVE: Patient seen and examined. Pt. states that he feels good and is in good spirits. Discussed with Pt. the possibility of having Syphilis or ever being treated for it, however he was surprised and his whom he called upon hearing this, was also surprised. Pt. denies drinking history and states he has been for 30 years. Pt. states he is a man of God. OBJECTIVE: Vital Signs Period Temp Pulse Resp BP Sys/Aleman Pulse Ox Last 24 Hr 97.6 F-98.6 F 79-91 16-18 101-113/53-68 95-97 GENERAL: The patient is awake, alert, and fully oriented, in no acute distress. HEAD: Normal with no signs of trauma. EYES: PERRL, extraocular movements intact, sclera anicteric, conjunctiva clear. ENT: Ears normal, nares patent, oropharynx clear without exudates, dry mucous membranes. NECK: Trachea midline, full range of motion, supple. LUNGS: Breath sounds equal, clear to auscultation bilaterally, no wheezes, no crackles, no accessory muscle use. HEART: Regular rate and rhythm, S1, S2 without murmur, rub or gallop. ABDOMEN: Soft, nontender, nondistended, normoactive bowel sounds, no guarding, no rebound EXTREMITIES: 2+ dorsal pedal pulses, warm, no calf tenderness, well-perfused, no edema. NEUROLOGICAL: Normal speech, gait not observed. PSYCH: Normal mood, normal affect. SKIN: Warm, dry, normal turgor Laboratory Results - last 24 hr 05/21/20 05/21/20 05/21/20 12:30 15:30 15:30 WBC RBC Hgb Hct MCV MCH MCHC RDW Plt Count MPV Absolute Neuts (auto) Neutrophils % Lymphocytes % Monocytes % Eosinophils % Basophils % Nucleated RBC % Sodium Potassium Chloride Carbon Dioxide Anion Gap BUN Creatinine Est GFR (CKD-EPI)AfAm Est GFR (CKD-EPI)NonAf POC Glucometer Random Glucose Hemoglobin A1c % 12.8 H Calcium Magnesium Total Bilirubin AST ALT Alkaline Phosphatase Total Protein Albumin Vitamin B12 1400 H Syphilis Serology RPR Titer COVID-19 (LE) Not detected 05/21/20 05/21/20 05/21/20 15:30 15:30 18:34 WBC RBC Hgb Hct MCV MCH MCHC RDW Plt Count MPV Absolute Neuts (auto) Neutrophils % Lymphocytes % Monocytes % Eosinophils % Basophils % Nucleated RBC % Sodium Potassium Chloride Carbon Dioxide Anion Gap BUN Creatinine Est GFR (CKD-EPI)AfAm Est GFR (CKD-EPI)NonAf POC Glucometer 254 Random Glucose Hemoglobin A1c % Calcium Magnesium Total Bilirubin AST ALT Alkaline Phosphatase Total Protein Albumin Vitamin B12 Syphilis Serology Reactive A* RPR Titer Reactive 1:1 H COVID-19 (LE) 05/21/20 05/22/20 05/22/20 20:48 05:53 10:28 WBC 7.5 RBC 4.52 Hgb 13.6 Hct 39.9 MCV 88.4 MCH 30.1 MCHC 34.1 RDW 14.4 Plt Count 218 D MPV 8.2 Absolute Neuts (auto) 4.9 Neutrophils % 65.5 Lymphocytes % 22.4 Monocytes % 9.7 Eosinophils % 1.4 Basophils % 1.0 Nucleated RBC % 0 Sodium Potassium Chloride Carbon Dioxide Anion Gap BUN Creatinine Est GFR (CKD-EPI)AfAm Est GFR (CKD-EPI)NonAf POC Glucometer 150 98 Random Glucose Hemoglobin A1c % Calcium Magnesium Total Bilirubin AST ALT Alkaline Phosphatase Total Protein Albumin Vitamin B12 Syphilis Serology RPR Titer COVID-19 (LE) 05/22/20 05/22/20 05/22/20 10:28 10:28 11:10 WBC RBC Hgb Hct MCV MCH MCHC RDW Plt Count MPV Absolute Neuts (auto) Neutrophils % Lymphocytes % Monocytes % Eosinophils % Basophils % Nucleated RBC % Sodium 138 Potassium 3.7 Chloride 104 Carbon Dioxide 24 Anion Gap 10 BUN 26.9 H Creatinine 1.2 Est GFR (CKD-EPI)AfAm 64.42 Est GFR (CKD-EPI)NonAf 55.58 POC Glucometer 225 Random Glucose 239 H Hemoglobin A1c % 13.0 H Calcium 8.2 L Magnesium 2.2 Total Bilirubin 0.4 AST 17 ALT 20 Alkaline Phosphatase 72 Total Protein 6.4 Albumin 2.6 L Vitamin B12 Syphilis Serology RPR Titer COVID-19 (LE) Active Medications Generic Name Dose Route Start Last Admin Trade Name Freq PRN Reason Stop Dose Admin Aspirin 81 mg 05/21/20 10:00 05/22/20 09:14 Asa - PO 81 mg DAILY [facility] Administration Atorvastatin Calcium 80 mg 05/21/20 22:00 05/21/20 22:13 Lipitor - PO 80 mg HS [facility] Administration Ezetimibe 10 mg 05/22/20 10:00 05/22/20 09:14 Zetia - PO 10 mg DAILY [facility] Administration Finasteride 5 mg 05/21/20 10:00 05/22/20 09:14 Proscar - PO 5 mg DAILY [facility] Administration Heparin Sodium (Porcine) 5,000 unit 05/20/20 22:00 05/22/20 15:30 Heparin - SQ 5,000 unit TID [facility] Administration Ceftriaxone Sodium 1 gm/ 50 mls @ 100 mls/hr 05/21/20 10:00 05/22/20 09:14 Dextrose IVPB 100 mls/hr DAILY [facility] Administration Insulin Aspart 1 vial 05/21/20 07:00 05/22/20 11:40 Novolog Vial Sliding Scale - SQ 6 unit ACHS [facility] Administration Protocol Insulin Detemir 8 units 05/21/20 10:00 05/22/20 09:15 Levemir Vial SQ 8 units BID [facility] Administration Propranolol HCl 60 mg 05/22/20 10:00 05/22/20 09:14 Inderal La - PO 60 mg DAILY [facility] Administration Tamsulosin HCl 0.4 mg 05/21/20 10:00 05/22/20 09:14 Flomax - PO 0.4 mg DAILY@0830 [facility] Administration ASSESSMENT/PLAN: Pt. is an 84 y.o. M w/ PMHx. of [place] s/p CABG (~35 years ago), HTN, HLD, NIDDM, and BPH who presented with dizziness and lightheadedness, ED workup showed initial glucose 471 and BUN/Cr 39.2/1.8 and patient was admitted for hyperglycemia and LONG. #Metabolic Encephalopathy 2/2 Hyperglycemia 2/2 uncontrolled DM - normal pH, likely due to noncompliance (starvation ketosis, uncontrolled DM) - initial glucose 471 (repeat 316), anion gap 13 (repeat 10), b-hydroxybutyrate 10.4, VBG pH 7.4 - received: NS 1L, Novolog 6U IVP, 125cc/h NS - ISS + BGM ACHS - A1C: 13 - IVF - Levemir 8 units BID - Started BIDAC Novolog 3 units (lunch and dinner) - Neurology Consult appreciated---> Brain MRI non contrast ordered. 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, however titers are 1:1, defer to Neurology for diagnostic tap; will start Namenda #LONG -resolved - likely due to dehydration from osmotic diuresis and UTI - BUN 36.1, Cr 1.2 today (baseline ~ 1.2 - 1.3) - nephrology consult appreciated - recs: fluids, urine lytes, renal US, urine and plasma osm, TSH, am cortisol #UTI - UA reviewed - will treat with IV Ceftriaxone (Day 2) #HTN - resume home meds when indicated #HLD - resume home statin #CO s/p CABG - resume home aspirin and statin #BPH - continue home tamsulosin and finasteride #FEN - 100cc/h NS - replete lytes PRN - diabetic controlled diet #Dispo: continue monitoring patient in telemetry Visit type - Emergency Visit Emergency Visit: Yes ED Registration Date: 05/20/20 Care time: The patient presented to the Emergency Department on the above date and was hospitalized for further evaluation of their emergent condition. - New Patient This patient is new to me today: Yes Date on this admission: 05/21/20 - Critical Care Critical Care patient: No - Discharge Referral Referred to [facility] Med P.C.: No - Medication Review Med list reviewed for High Risk Meds patients 65 and older: No ATTENDING PHYSICIAN STATEMENT I saw and evaluated the patient. I reviewed the resident's note and discussed the case with the resident. I agree with the resident's findings and plan as documented. SUBJECTIVE: OBJECTIVE: ASSESSMENT AND PLAN:
[2020-05-22] MEDS ORDERED: INSULIN (NOVOLOG) ASPART 100 UNITS/ML 10ML VIAL SQ SCH ×2 (16:30)
[2020-05-22] MEDS: INSULIN (NOVOLOG) ASPART 100 UNITS/ML 10ML VIAL SQ SCH (17:00)
[2020-05-22] MEDS: MEMANTINE HCL 5 MG TABLET (UD) PO SCH (21:39)
[2020-05-22] MEDS: ATORVASTATIN CA 80 MG TABLET (FP) PO SCH (21:39)
[2020-05-23] MEDS: HEPARIN NA (PORCINE) 5,000 UNITS/ML 1ML VIAL SQ SCH ×2 (06:20→14:33)
[2020-05-23] MEDS: INSULIN (NOVOLOG) ASPART 100 UNITS/ML 10ML VIAL SQ SCH ×2 (06:20→17:00)
[2020-05-23] MEDS ORDERED: INSULIN (NOVOLOG) ASPART 100 UNITS/ML 10ML VIAL ONE (07:04)
[2020-05-23] MEDS: INSULIN SLIDING SCALE (NOVOLOG) 1 VIAL SQ SCH ×3 (07:04→17:00)
[2020-05-23 08:23] LABS: BASO % 0.7 % (0-2.0); EOS % 1.9 % (0-4.5); LYMPH % 29.7 % (8-40); MCH 30.1 pg (25.7-33.7); MCHC 34.3 g/dl (32.0-35.9); MEAN CELL VOLUME 87.7 fl (80-96); MEAN PLT VOLUME 8.4 fl (7.5-11.1); MONO % 10.4 % (3.8-10.2); NEUT % 57.3 % (42.8-82.8); PLATELET COUNT 197 K/MM3 (134-434); RBC 4.34 M/mm3 (4.00-5.60); RDW 14.1 % (11.9-15.9); WHITE BLOOD COUNT 5.7 K/mm3 (4.0-10.0)
[2020-05-23 08:50] LABS: BLOOD UREA NITROGEN 17.2 mg/dL (7-18); CALCIUM 8.2 mg/dL (8.5-10.1); POTASSIUM 3.7 mmol/L (3.5-5.1)
[2020-05-23] MEDS ORDERED: cefTRIAXone SODIUM 1 GM VIAL ONE (09:51)
[2020-05-23] MEDS ORDERED: DEXTROSE 5%-WATER - 50 ML IVPB ONE (09:51)
[2020-05-23] MEDS: CEFTRIAXONE 1 GM in DEXTROSE 5%-WATER - 50 ML IVPB SCH (09:54)
[2020-05-23] MEDS: EZETIMIBE 10 MG TABLET (FP) PO SCH (09:55)
[2020-05-23] MEDS: FINASTERIDE 5 MG TABLET (FP) PO SCH (09:55)
[2020-05-23] MEDS: MEMANTINE HCL 5 MG TABLET (UD) PO SCH (09:55)
[2020-05-23] MEDS: TAMSULOSIN HCL 0.4 MG CAP PO SCH (09:55)
[2020-05-23] MEDS: ASPIRIN 81 MG CHEWABLE TABLETS PO SCH (09:55)
[2020-05-23] MEDS: INSULIN (LEVEMIR) 100 UNITS/ML UNITS SQ SCH (09:56)
--- NOTE | 2020-05-23 12:42 | DS ---
Physical Exam: SUBJECTIVE: Patient seen and examined. Pt. endorses this AM he had some nausea and was unable to eat breakfast. He denied any problems with dinner last night. Pt. again reassessed in the afternoon in anticipation of discharge noted that his appetite was better. Pt. remarked that he had just saw blood in his urine. UA was sent stat. OBJECTIVE: Vital Signs Period Temp Pulse Resp BP Sys/Aleman Pulse Ox Last 24 Hr 97.5 F-98.2 F 70-85 18-18 91-127/49-72 95-100 PHYSICAL EXAM GENERAL: The patient is awake, alert, and fully oriented, in no acute distress. HEAD: Normal with no signs of trauma. EYES: PERRL, extraocular movements intact, sclera anicteric, conjunctiva clear. ENT: Ears normal, nares patent, oropharynx clear without exudates, dry mucous membranes. NECK: Trachea midline, full range of motion, supple. LUNGS: Breath sounds equal, clear to auscultation bilaterally, no wheezes, no crackles, no accessory muscle use. HEART: Regular rate and rhythm, S1, S2 without murmur, rub or gallop. ABDOMEN: Soft, nontender, nondistended, normoactive bowel sounds, no guarding, no rebound EXTREMITIES: 2+ dorsal pedal pulses, warm, no calf tenderness, well-perfused, no edema. NEUROLOGICAL: Normal speech, gait not observed. PSYCH: Normal mood, normal affect. SKIN: Warm, dry, normal turgor LABS Laboratory Results - last 24 hr 05/20/20 05/21/20 05/22/20 19:29 12:30 16:28 WBC RBC Hgb Hct MCV MCH MCHC RDW Plt Count MPV Absolute Neuts (auto) Neutrophils % Lymphocytes % Monocytes % Eosinophils % Basophils % Nucleated RBC % Sodium Potassium Chloride Carbon Dioxide Anion Gap BUN Creatinine Est GFR (CKD-EPI)AfAm Est GFR (CKD-EPI)NonAf POC Glucometer 204 Random Glucose Calcium Cortisol AM Sample 24.9 H COVID-19 (LE) Not detected 05/22/20 05/22/20 05/23/20 18:06 21:36 06:16 WBC RBC Hgb Hct MCV MCH MCHC RDW Plt Count MPV Absolute Neuts (auto) Neutrophils % Lymphocytes % Monocytes % Eosinophils % Basophils % Nucleated RBC % Sodium Potassium Chloride Carbon Dioxide Anion Gap BUN Creatinine Est GFR (CKD-EPI)AfAm Est GFR (CKD-EPI)NonAf POC Glucometer 280 247 180 Random Glucose Calcium Cortisol AM Sample COVID-19 (LE) 05/23/20 05/23/20 05/23/20 07:02 07:20 07:20 WBC 5.7 RBC 4.34 Hgb 13.0 Hct 38.0 MCV 87.7 MCH 30.1 MCHC 34.3 RDW 14.1 Plt Count 197 MPV 8.4 Absolute Neuts (auto) 3.3 Neutrophils % 57.3 Lymphocytes % 29.7 D Monocytes % 10.4 H Eosinophils % 1.9 Basophils % 0.7 Nucleated RBC % 0 Sodium 141 Potassium 3.7 Chloride 108 H Carbon Dioxide 24 Anion Gap 9 BUN 17.2 Creatinine 1.0 Est GFR (CKD-EPI)AfAm 80.31 Est GFR (CKD-EPI)NonAf 69.29 POC Glucometer 159 Random Glucose 151 H Calcium 8.2 L Cortisol AM Sample COVID-19 (LE) 05/23/20 11:26 WBC RBC Hgb Hct MCV MCH MCHC RDW Plt Count MPV Absolute Neuts (auto) Neutrophils % Lymphocytes % Monocytes % Eosinophils % Basophils % Nucleated RBC % Sodium Potassium Chloride Carbon Dioxide Anion Gap BUN Creatinine Est GFR (CKD-EPI)AfAm Est GFR (CKD-EPI)NonAf POC Glucometer 259 Random Glucose Calcium Cortisol AM Sample COVID-19 (LE) HOSPITAL COURSE: Date of Admission:05/20/20 Date of Discharge: 05/23/20 Pt. is an 84 y.o. M presenting for confusion. Head CT and Brain MRI negative for acute pathology. Pt. had a positive UA ad started on Ceftriaxone. LONG was tr eated with IVF, Renal US showed minimal to mild cortical atrophy. Pt. found to have uncontrolled blood glucose and started on Insulin for glucose control. 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 Pt. seen by Neurology, Infectious Disease, Nephrology and Physical Therapy. Hospital follow up and medication adjustments as detailed below. IM Penicillin was felt to be sufficient to cover UTI and latent syphillis. Minutes to complete discharge: 30 Discharge Summary Problems reviewed: Yes Reason For Visit: DIZZINESS,DIABETIC KETOACIDOSIS ASSOCIATED WITH Current Active Problems Dementia (Acute) Lightheaded (Acute) Condition: Guarded - Instructions Diet, Activity, Other Instructions: You came in for confusion and burning on urination. We found that you had a urinary tract infection. WE started you on IV antibiotics. We also found that you have uncontrolled diabetes. After discussion with your , your last A1c was 8.0. In the hospital your A1c is 13. We have changed your medications because of this and recommend that you follow up as detailed below. You were seen by a Neurologist, Infectious Disease specialist, and Resident Surgeon. We imaged your kidneys and saw that there is chronic irreversible damage. We imaged your brain and did not find anything immediately wrong. We did however find chronic damage in areas that are affected by high blood pressure. Your penicillin shots will cover your UTI. We have started you on some new medications for your blood sugar. PLEASE TAKE THEM as prescribed Janumet 50mg/1,000mg EVERY 12 Hours Levemir 10units EVERY 12 Hours Memantine 5mg EVERY 12 hours Please Stop your previous Diabetes medications. Please take all your other medications as prescribed Please check your blood sugar EVERY DAY BEFORE taking your insulin. If your Glucose is below 100 skip that dose for that time. If you notice you are skipping many doses CALL your PCP and schedule an appointment. If you notice your glucose is below 70, GO to the ER immediately. Please follow up with your PCP Dr. Yoshi Hernández in 1 week, Please bring your blood sugar log at that time to his office and adjustments can be made. Please bring your Penicillin syringe unopened to this clinic visit where Dr. Hernández will administer this medication. He will then give you another prescription for another injection of the same medication 1 week from that for a total of 3 injections. Please bring this form with you to his office. Please follow up with your Neurologist, Dr. Moscoso, within 1 week. Please follow up with Resident Surgeon, Dr. Pelaez within 1 week. He will start you on an BOZENA or ARB to help control your BP and protect your kidneys and your heart at that time. Please return to the hospital if you are having any concerning symptoms. Referrals: ON STAFF,NOT [Non Staff, Medical] - 1 Week Preet Pelaez MD [Staff Physician] - 1 Week Yoshi Hernández MD [Staff Physician] - Yoshi Hernández MD [Staff Physician] - Chavez Moscoso MD [Staff Physician] - 1 Week Disposition: HOME - Home Medications Comprehensive Discharge Medication List: Ambulatory Orders Aspirin 81 mg PO DAILY 05/20/20 Atorvastatin Ca [Lipitor] 80 mg PO DAILY 05/20/20 Januvia 100 mg PO DAILY 05/20/20 Propranolol HCl 60 mg PO DAILY 05/20/20 Tamsulosin HCl 0.4 mg PO DAILY 05/20/20 metFORMIN HCL [Metformin HCl] 850 mg PO BID 05/20/20 Ezetimibe [Zetia] 10 mg PO DAILY 05/21/20 Finasteride 5 mg PO DAILY 05/21/20 Insulin Detemir [Levemir Flextouch] 10 unit SQ BID #4 vial 05/23/20 Memantine HCl [Namenda -] 5 mg PO BID #60 tab 05/23/20 Penicillin G Benzathine [Bicillin L-A -] 2,400,000 unit IM ONCE #1 syr 05/23/20 Sitagliptin Phos/Metformin HCl [Janumet 50-1,000 mg Tablet] 1 each PO BID #60 tablet 05/23/20 This patient is new to me today: No Emergency Visit: Yes ED Registration Date: 05/20/20 Care time: The patient presented to the Emergency Department on the above date and was hospitalized for further evaluation of their emergent condition. Critical Care patient: No - Discharge Referral Referred to [facility] No ATTENDING PHYSICIAN STATEMENT I saw and evaluated the patient. I reviewed the resident's note and discussed the case with the resident. I agree with the resident's findings and plan as documented. SUBJECTIVE: OBJECTIVE: ASSESSMENT AND PLAN:
[2020-05-23] MEDS ORDERED: PENICILLIN G BENZATHINE 2,400,000 UNIT/4 ML PFS IM ONE (13:00)
--- NOTE | 2020-05-23 13:54 | PN ---
Progress Note, Physician - Current Medication List Current Medications: Active Medications Aspirin (Asa -) 81 mg PO DAILY [facility] Last Admin: 05/23/20 09:55 Dose: 81 mg Documented by: Atorvastatin Calcium (Lipitor -) 80 mg PO HS [facility] Last Admin: 05/22/20 21:39 Dose: 80 mg Documented by: Ezetimibe (Zetia -) 10 mg PO DAILY [facility] Last Admin: 05/23/20 09:55 Dose: 10 mg Documented by: Finasteride (Proscar -) 5 mg PO DAILY [facility] Last Admin: 05/23/20 09:55 Dose: 5 mg Documented by: Heparin Sodium (Porcine) (Heparin -) 5,000 unit SQ TID [facility] Last Admin: 05/23/20 06:20 Dose: 5,000 unit Documented by: Ceftriaxone Sodium 1 gm/ (Dextrose) 50 mls @ 100 mls/hr IVPB DAILY [facility] Last Admin: 05/23/20 09:54 Dose: 100 mls/hr Documented by: Insulin Aspart (Novolog Vial Sliding Scale -) 1 vial SQ ACHS [facility]; Protocol Last Admin: 05/23/20 11:33 Dose: 6 units Documented by: Insulin Aspart (Novolog Vial) 3 units SQ BIDAC [facility]; Protocol Last Admin: 05/23/20 06:20 Dose: 3 units Documented by: Insulin Detemir (Levemir Vial) 8 units SQ BID [facility] Last Admin: 05/23/20 09:56 Dose: 8 units Documented by: Memantine (Namenda -) 5 mg PO BID [facility] Last Admin: 05/23/20 09:55 Dose: 5 mg Documented by: Propranolol HCl (Inderal La -) 60 mg PO DAILY [facility] Last Admin: 05/23/20 09:55 Dose: 60 mg Documented by: Tamsulosin HCl (Flomax -) 0.4 mg PO DAILY@0830 [facility] Last Admin: 05/23/20 09:55 Dose: 0.4 mg Documented by: - Objective Vital Signs: Vital Signs Temperature 97.5 F L 05/23/20 06:00 Pulse Rate 80 05/23/20 10:00 Respiratory Rate 18 05/23/20 10:00 Blood Pressure 94/50 L 05/23/20 10:00 O2 Sat by Pulse Oximetry (%) 97 05/23/20 10:00 Labs: CBC, BMP 05/23/20 07:20 05/23/20 07:20
--- NOTE | 2020-05-23 14:01 | PN ---
Progress Note, Physician History of Present Illness: Pt seen and examined at bedside. He is awake and alert. He denies shortness of breath. - Current Medication List Current Medications: Active Medications Aspirin (Asa -) 81 mg PO DAILY [facility] Last Admin: 05/23/20 09:55 Dose: 81 mg Documented by: Atorvastatin Calcium (Lipitor -) 80 mg PO HS [facility] Last Admin: 05/22/20 21:39 Dose: 80 mg Documented by: Ezetimibe (Zetia -) 10 mg PO DAILY [facility] Last Admin: 05/23/20 09:55 Dose: 10 mg Documented by: Finasteride (Proscar -) 5 mg PO DAILY [facility] Last Admin: 05/23/20 09:55 Dose: 5 mg Documented by: Heparin Sodium (Porcine) (Heparin -) 5,000 unit SQ TID [facility] Last Admin: 05/23/20 06:20 Dose: 5,000 unit Documented by: Ceftriaxone Sodium 1 gm/ (Dextrose) 50 mls @ 100 mls/hr IVPB DAILY [facility] Last Admin: 05/23/20 09:54 Dose: 100 mls/hr Documented by: Insulin Aspart (Novolog Vial Sliding Scale -) 1 vial SQ ACHS [facility]; Protocol Last Admin: 05/23/20 11:33 Dose: 6 units Documented by: Insulin Aspart (Novolog Vial) 3 units SQ BIDAC [facility]; Protocol Last Admin: 05/23/20 06:20 Dose: 3 units Documented by: Insulin Detemir (Levemir Vial) 8 units SQ BID [facility] Last Admin: 05/23/20 09:56 Dose: 8 units Documented by: Memantine (Namenda -) 5 mg PO BID [facility] Last Admin: 05/23/20 09:55 Dose: 5 mg Documented by: Propranolol HCl (Inderal La -) 60 mg PO DAILY [facility] Last Admin: 05/23/20 09:55 Dose: 60 mg Documented by: Tamsulosin HCl (Flomax -) 0.4 mg PO DAILY@0830 [facility] Last Admin: 05/23/20 09:55 Dose: 0.4 mg Documented by: - Objective Vital Signs: Vital Signs Temperature 97.5 F L 05/23/20 06:00 Pulse Rate 80 05/23/20 10:00 Respiratory Rate 18 05/23/20 10:00 Blood Pressure 94/50 L 05/23/20 10:00 O2 Sat by Pulse Oximetry (%) 97 08/27/20 10:00 Constitutional: Yes: Calm Eyes: Yes: Conjunctiva Clear HENT: Yes: Atraumatic Neck: Yes: Supple Cardiovascular: Yes: S1, S2 Respiratory: Yes: CTA Bilaterally Gastrointestinal: Yes: Normal Bowel Sounds, Soft Genitourinary: Yes: WNL Musculoskeletal: Yes: WNL Edema: No Integumentary: Yes: WNL Neurological: Yes: Oriented Psychiatric: Yes: Oriented Labs: CBC, BMP 05/23/20 07:20 05/23/20 07:20 Problem List - Problems (1) Lightheaded Code(s): R42 - DIZZINESS AND GIDDINESS (2) Dehydration Code(s): E86.0 - DEHYDRATION (3) Hyperglycemia Code(s): R73.9 - HYPERGLYCEMIA, UNSPECIFIED Assessment/Plan Current Medications Generic Name Dose Route Start Last Admin Trade Name Freq PRN Reason Stop Dose Admin Aspirin 81 mg 05/21/20 10:00 05/23/20 09:55 Asa - PO 81 mg DAILY [facility] Administration Atorvastatin Calcium 80 mg 05/21/20 22:00 05/22/20 21:39 Lipitor - PO 80 mg HS [facility] Administration Ezetimibe 10 mg 05/22/20 10:00 05/23/20 09:55 Zetia - PO 10 mg DAILY [facility] Administration Finasteride 5 mg 05/21/20 10:00 05/23/20 09:55 Proscar - PO 5 mg DAILY [facility] Administration Heparin Sodium (Porcine) 5,000 unit 05/20/20 22:00 05/23/20 06:20 Heparin - SQ 5,000 unit TID [facility] Administration Ceftriaxone Sodium 1 gm/ 50 mls @ 100 mls/hr 05/21/20 10:00 05/23/20 09:54 Dextrose IVPB 100 mls/hr DAILY [facility] Administration Insulin Aspart 1 vial 05/22/20 16:30 05/23/20 11:33 Novolog Vial Sliding Scale - SQ 6 units ACHS [facility] Administration Protocol Insulin Aspart 3 units 05/22/20 17:53 05/23/20 06:20 Novolog Vial SQ 3 units BIDAC [facility] Administration Protocol Insulin Detemir 8 units 05/21/20 10:00 05/23/20 09:56 Levemir Vial SQ 8 units BID [facility] Administration Memantine 5 mg 05/22/20 22:00 05/23/20 09:55 Namenda - PO 5 mg BID [facility] Administration Propranolol HCl 60 mg 05/22/20 10:00 05/23/20 09:55 Inderal La - PO 60 mg DAILY [facility] Administration Tamsulosin HCl 0.4 mg 05/21/20 10:00 05/23/20 09:55 Flomax - PO 0.4 mg DAILY@0830 [facility] Administration Impression 1. larry 2. hyperglycemia 3. dm 4. hyponatremia 5. hyperkalemia 6. htn 7. cabg 8. bph 9. ckd Plan - renal function is improved - outpt follow up - avoid nsaids - will start arb if bp improves - pt likely with ckd as there is cortical atrophy on ultrasound
[2020-05-23 14:02] VITALS: BP 97/55; PULSE 63; TEMP 98
--- NOTE | 2020-05-23 17:41 | PN ---
Teaching Attending Note Name of Resident: Nestor Munoz ATTENDING PHYSICIAN STATEMENT I saw and evaluated the patient. I reviewed the resident's note and discussed the case with the resident. I agree with the resident's findings and plan as documented. SUBJECTIVE: Patient seen and examined at bedside, still slightly confused, FS improved. RPR pending. VSS. OBJECTIVE: GENERAL: AAox1, confused HEENT NC/AT, neck supple, dry MM LUNGS: CTAB, no wheezing appreciated HEART: RRR, S1 S2 without murmurs ABDOMEN: Soft, nontender, not distended, active bowel sounds, sternal scar MUSCULOSKELETAL: Normal range of motion at all joints, walking without difficulties EXTREMITIES: radial pulses easily palpable, dorsalis pedis not palpable, UEs w arm to touch, feet cold to touch, no peripheral edema noted NEUROLOGICAL: Cranial nerves II-XII grossly intact, normal speech, normal gait, sensation intact including toes PSYCHIATRIC: Cooperative. Good eye contact. confused Vital Signs (72 hours) 05/21/20 05/21/20 05/21/20 01:56 06:37 09:00 Temperature 98 F Pulse Rate Pulse Rate [ 77 64 Left] Respiratory 18 18 18 Rate Blood Pressure Blood Pressure 103/56 L 129/67 [Right Arm] O2 Sat by Pulse 97 96 99 Oximetry (%) 05/21/20 05/21/20 05/21/20 10:00 13:23 18:00 Temperature 97.4 F L 97.5 F L 98.0 F Pulse Rate 68 66 79 Pulse Rate [ Left] Respiratory 18 16 16 Rate Blood Pressure 149/78 122/75 101/66 Blood Pressure [Right Arm] O2 Sat by Pulse 99 94 L 95 Oximetry (%) 05/21/20 05/21/20 05/22/20 21:00 22:00 02:00 Temperature 97.9 F 98.6 F Pulse Rate 84 79 Pulse Rate [ Left] Respiratory 16 16 18 Rate Blood Pressure 113/53 L 111/68 Blood Pressure [Right Arm] O2 Sat by Pulse 97 97 97 Oximetry (%) 05/22/20 05/22/20 05/22/20 06:00 09:00 10:00 Temperature 98.3 F 97.6 F Pulse Rate 91 H 80 Pulse Rate [ Left] Respiratory 18 18 18 Rate Blood Pressure 113/66 110/65 Blood Pressure [Right Arm] O2 Sat by Pulse 95 96 95 Oximetry (%) 05/22/20 05/22/20 05/22/20 14:00 18:00 21:00 Temperature 97.7 F 97.7 F Pulse Rate 72 85 Pulse Rate [ Left] Respiratory 18 18 Rate Blood Pressure 119/61 112/56 L Blood Pressure [Right Arm] O2 Sat by Pulse 100 98 95 Oximetry (%) 05/22/20 05/23/20 05/23/20 21:45 02:00 06:00 Temperature 98.2 F 97.8 F 97.5 F L Pulse Rate 70 77 75 Pulse Rate [ Left] Respiratory 18 18 18 Rate Blood Pressure 91/49 L 105/53 L 127/72 Blood Pressure [Right Arm] O2 Sat by Pulse 95 97 98 Oximetry (%) 05/23/20 05/23/20 05/23/20 09:00 10:00 14:00 Temperature 98 F Pulse Rate 80 63 Pulse Rate [ Left] Respiratory 18 20 Rate Blood Pressure 94/50 L 97/55 L Blood Pressure [Right Arm] O2 Sat by Pulse 97 97 97 Oximetry (%) Microbiology 05/21/20 11:39 Urine - Urine Clean Catch Urine Culture - Final Escherichia Coli Laboratory Results - last 24 hr 05/22/20 05/22/20 05/22/20 16:28 18:06 21:36 WBC RBC Hgb Hct MCV MCH MCHC RDW Plt Count MPV Absolute Neuts (auto) Neutrophils % Lymphocytes % Monocytes % Eosinophils % Basophils % Nucleated RBC % Sodium Potassium Chloride Carbon Dioxide Anion Gap BUN Creatinine Est GFR (CKD-EPI)AfAm Est GFR (CKD-EPI)NonAf POC Glucometer 204 280 247 Random Glucose Calcium 05/23/20 05/23/20 05/23/20 06:16 07:02 07:20 WBC 5.7 RBC 4.34 Hgb 13.0 Hct 38.0 MCV 87.7 MCH 30.1 MCHC 34.3 RDW 14.1 Plt Count 197 MPV 8.4 Absolute Neuts (auto) 3.3 Neutrophils % 57.3 Lymphocytes % 29.7 D Monocytes % 10.4 H Eosinophils % 1.9 Basophils % 0.7 Nucleated RBC % 0 Sodium Potassium Chloride Carbon Dioxide Anion Gap BUN Creatinine Est GFR (CKD-EPI)AfAm Est GFR (CKD-EPI)NonAf POC Glucometer 180 159 Random Glucose Calcium 05/23/20 05/23/20 07:20 11:26 WBC RBC Hgb Hct MCV MCH MCHC RDW Plt Count MPV Absolute Neuts (auto) Neutrophils % Lymphocytes % Monocytes % Eosinophils % Basophils % Nucleated RBC % Sodium 141 Potassium 3.7 Chloride 108 H Carbon Dioxide 24 Anion Gap 9 BUN 17.2 Creatinine 1.0 Est GFR (CKD-EPI)AfAm 80.31 Est GFR (CKD-EPI)NonAf 69.29 POC Glucometer 259 Random Glucose 151 H Calcium 8.2 L Home Medications Medication Instructions Recorded Aspirin 81 mg PO DAILY 05/20/20 Atorvastatin Ca [Lipitor] 80 mg PO DAILY 05/20/20 Januvia 100 mg PO DAILY 05/20/20 Propranolol HCl 60 mg PO DAILY 05/20/20 Tamsulosin HCl 0.4 mg PO DAILY 05/20/20 metFORMIN HCL [Metformin HCl] 850 mg PO BID 05/20/20 Ezetimibe [Zetia] 10 mg PO DAILY 05/21/20 Finasteride 5 mg PO DAILY 05/21/20 Insulin Detemir [Levemir Flextouch] 10 unit SQ BID #4 vial 05/23/20 Memantine HCl [Namenda -] 5 mg PO BID #60 tab 05/23/20 Penicillin G Benzathine [Bicillin 2,400,000 unit IM ONCE #1 syr 05/23/20 L-A -] Sitagliptin Phos/Metformin HCl 1 each PO BID #60 tablet 05/23/20 [Janumet 50-1,000 mg Tablet] Current Medications Generic Name Dose Route Start Last Admin Trade Name Nicholasq PRN Reason Stop Dose Admin Aspirin 81 mg 05/21/20 10:00 05/23/20 09:55 Asa - PO 81 mg DAILY [facility] Administration Atorvastatin Calcium 80 mg 05/21/20 22:00 05/22/20 21:39 Lipitor - PO 80 mg HS [facility] Administration Ezetimibe 10 mg 05/22/20 10:00 05/23/20 09:55 Zetia - PO 10 mg DAILY [facility] Administration Finasteride 5 mg 05/21/20 10:00 05/23/20 09:55 Proscar - PO 5 mg DAILY [facility] Administration Heparin Sodium (Porcine) 5,000 unit 05/20/20 22:00 05/23/20 14:33 Heparin - SQ Not Given TID [facility] Ceftriaxone Sodium 1 gm/ 50 mls @ 100 mls/hr 05/21/20 10:00 05/23/20 09:54 Dextrose IVPB 100 mls/hr DAILY [facility] Administration Insulin Aspart 1 vial 05/22/20 16:30 05/23/20 17:00 Novolog Vial Sliding Scale - SQ Not Given ACHS [facility] Protocol Insulin Aspart 3 units 05/22/20 17:53 05/23/20 17:00 Novolog Vial SQ Not Given BIDAC [facility] Protocol Insulin Detemir 8 units 05/21/20 10:00 05/23/20 09:56 Levemir Vial SQ 8 units BID [facility] Administration Memantine 5 mg 05/22/20 22:00 05/23/20 09:55 Namenda - PO 5 mg BID [facility] Administration Propranolol HCl 60 mg 05/22/20 10:00 05/23/20 09:55 Inderal La - PO 60 mg DAILY [facility] Administration Tamsulosin HCl 0.4 mg 05/21/20 10:00 05/23/20 09:55 Flomax - PO 0.4 mg DAILY@0830 [facility] Administration ASSESSMENT AND PLAN: 84 M Uncontrolled T2Dm with HHS HTN HLD ?new onset dementia (r/o tertiary syphilis v.s. vascular dementia) UTI Metabolic encephalopathy BPH Plan: Cont. Levemir BID, will need insulin regimen at home Trial of Namenda per Neurology RPR pending Ceftriaxone for UTI cont. BP meds DVT ppx heparin SC
--- NOTE | 2020-05-23 17:46 | PN ---
Teaching Attending Note Name of Resident: Nestor Munoz ATTENDING PHYSICIAN STATEMENT I saw and evaluated the patient. I reviewed the resident's note and discussed the case with the resident. I agree with the resident's findings and plan as documented. SUBJECTIVE: Patient seen and examined at bedside, still slightly confused, FS improved. RPR pending. VSS. OBJECTIVE: GENERAL: AAox1, confused HEENT NC/AT, neck supple, dry MM LUNGS: CTAB, no wheezing appreciated HEART: RRR, S1 S2 without murmurs ABDOMEN: Soft, nontender, not distended, active bowel sounds, sternal scar MUSCULOSKELETAL: Normal range of motion at all joints, walking without difficulties EXTREMITIES: radial pulses easily palpable, dorsalis pedis not palpable, UEs wa rm to touch, feet cold to touch, no peripheral edema noted NEUROLOGICAL: Cranial nerves II-XII grossly intact, normal speech, normal gait, sensation intact including toes PSYCHIATRIC: Cooperative. Good eye contact. confused Vital Signs (72 hours) 05/21/20 05/21/20 05/21/20 01:56 06:37 09:00 Temperature 98 F Pulse Rate Pulse Rate [ 77 64 Left] Respiratory 18 18 18 Rate Blood Pressure Blood Pressure 103/56 L 129/67 [Right Arm] O2 Sat by Pulse 97 96 99 Oximetry (%) 05/21/20 05/21/20 05/21/20 10:00 13:23 18:00 Temperature 97.4 F L 97.5 F L 98.0 F Pulse Rate 68 66 79 Pulse Rate [ Left] Respiratory 18 16 16 Rate Blood Pressure 149/78 122/75 101/66 Blood Pressure [Right Arm] O2 Sat by Pulse 99 94 L 95 Oximetry (%) 05/21/20 05/21/20 05/22/20 21:00 22:00 02:00 Temperature 97.9 F 98.6 F Pulse Rate 84 79 Pulse Rate [ Left] Respiratory 16 16 18 Rate Blood Pressure 113/53 L 111/68 Blood Pressure [Right Arm] O2 Sat by Pulse 97 97 97 Oximetry (%) 05/22/20 05/22/20 05/22/20 06:00 09:00 10:00 Temperature 98.3 F 97.6 F Pulse Rate 91 H 80 Pulse Rate [ Left] Respiratory 18 18 18 Rate Blood Pressure 113/66 110/65 Blood Pressure [Right Arm] O2 Sat by Pulse 95 96 95 Oximetry (%) 05/22/20 05/22/20 05/22/20 14:00 18:00 21:00 Temperature 97.7 F 97.7 F Pulse Rate 72 85 Pulse Rate [ Left] Respiratory 18 18 Rate Blood Pressure 119/61 112/56 L Blood Pressure [Right Arm] O2 Sat by Pulse 100 98 95 Oximetry (%) 05/22/20 05/23/20 05/23/20 21:45 02:00 06:00 Temperature 98.2 F 97.8 F 97.5 F L Pulse Rate 70 77 75 Pulse Rate [ Left] Respiratory 18 18 18 Rate Blood Pressure 91/49 L 105/53 L 127/72 Blood Pressure [Right Arm] O2 Sat by Pulse 95 97 98 Oximetry (%) 05/23/20 05/23/20 05/23/20 09:00 10:00 14:00 Temperature 98 F Pulse Rate 80 63 Pulse Rate [ Left] Respiratory 18 20 Rate Blood Pressure 94/50 L 97/55 L Blood Pressure [Right Arm] O2 Sat by Pulse 97 97 97 Oximetry (%) Microbiology 05/21/20 11:39 Urine - Urine Clean Catch Urine Culture - Final Escherichia Coli Laboratory Results - last 24 hr 05/22/20 05/22/20 05/22/20 16:28 18:06 21:36 WBC RBC Hgb Hct MCV MCH MCHC RDW Plt Count MPV Absolute Neuts (auto) Neutrophils % Lymphocytes % Monocytes % Eosinophils % Basophils % Nucleated RBC % Sodium Potassium Chloride Carbon Dioxide Anion Gap BUN Creatinine Est GFR (CKD-EPI)AfAm Est GFR (CKD-EPI)NonAf POC Glucometer 204 280 247 Random Glucose Calcium 05/23/20 05/23/20 05/23/20 06:16 07:02 07:20 WBC 5.7 RBC 4.34 Hgb 13.0 Hct 38.0 MCV 87.7 MCH 30.1 MCHC 34.3 RDW 14.1 Plt Count 197 MPV 8.4 Absolute Neuts (auto) 3.3 Neutrophils % 57.3 Lymphocytes % 29.7 D Monocytes % 10.4 H Eosinophils % 1.9 Basophils % 0.7 Nucleated RBC % 0 Sodium Potassium Chloride Carbon Dioxide Anion Gap BUN Creatinine Est GFR (CKD-EPI)AfAm Est GFR (CKD-EPI)NonAf POC Glucometer 180 159 Random Glucose Calcium 05/23/20 05/23/20 07:20 11:26 WBC RBC Hgb Hct MCV MCH MCHC RDW Plt Count MPV Absolute Neuts (auto) Neutrophils % Lymphocytes % Monocytes % Eosinophils % Basophils % Nucleated RBC % Sodium 141 Potassium 3.7 Chloride 108 H Carbon Dioxide 24 Anion Gap 9 BUN 17.2 Creatinine 1.0 Est GFR (CKD-EPI)AfAm 80.31 Est GFR (CKD-EPI)NonAf 69.29 POC Glucometer 259 Random Glucose 151 H Calcium 8.2 L Home Medications Medication Instructions Recorded Aspirin 81 mg PO DAILY 05/20/20 Atorvastatin Ca [Lipitor] 80 mg PO DAILY 05/20/20 Januvia 100 mg PO DAILY 05/20/20 Propranolol HCl 60 mg PO DAILY 05/20/20 Tamsulosin HCl 0.4 mg PO DAILY 05/20/20 metFORMIN HCL [Metformin HCl] 850 mg PO BID 05/20/20 Ezetimibe [Zetia] 10 mg PO DAILY 05/21/20 Finasteride 5 mg PO DAILY 05/21/20 Insulin Detemir [Levemir Flextouch] 10 unit SQ BID #4 vial 05/23/20 Memantine HCl [Namenda -] 5 mg PO BID #60 tab 05/23/20 Penicillin G Benzathine [Bicillin 2,400,000 unit IM ONCE #1 syr 05/23/20 L-A -] Sitagliptin Phos/Metformin HCl 1 each PO BID #60 tablet 05/23/20 [Janumet 50-1,000 mg Tablet] Current Medications Generic Name Dose Route Start Last Admin Trade Name Nicholasq PRN Reason Stop Dose Admin Aspirin 81 mg 05/21/20 10:00 05/23/20 09:55 Asa - PO 81 mg DAILY CORRIE Administration Atorvastatin Calcium 80 mg 05/21/20 22:00 05/22/20 21:39 Lipitor - PO 80 mg HS CORRIE Administration Ezetimibe 10 mg 05/22/20 10:00 05/23/20 09:55 Zetia - PO 10 mg DAILY CORRIE Administration Finasteride 5 mg 05/21/20 10:00 05/23/20 09:55 Proscar - PO 5 mg DAILY OCRRIE Administration Heparin Sodium (Porcine) 5,000 unit 05/20/20 22:00 05/23/20 14:33 Heparin - SQ Not Given TID CORRIE Ceftriaxone Sodium 1 gm/ 50 mls @ 100 mls/hr 05/21/20 10:00 05/23/20 09:54 Dextrose IVPB 100 mls/hr DAILY CORRIE Administration Insulin Aspart 1 vial 05/22/20 16:30 05/23/20 17:00 Novolog Vial Sliding Scale - SQ Not Given ACHS [facility] Protocol Insulin Aspart 3 units 05/22/20 17:53 05/23/20 17:00 Novolog Vial SQ Not Given BIDAC [facility] Protocol Insulin Detemir 8 units 05/21/20 10:00 05/23/20 09:56 Levemir Vial SQ 8 units BID CORRIE Administration Memantine 5 mg 05/22/20 22:00 05/23/20 09:55 Namenda - PO 5 mg BID CORRIE Administration Propranolol HCl 60 mg 05/22/20 10:00 05/23/20 09:55 Inderal La - PO 60 mg DAILY CORRIE Administration Tamsulosin HCl 0.4 mg 05/21/20 10:00 05/23/20 09:55 Flomax - PO 0.4 mg DAILY@0830 CORRIE Administration ASSESSMENT AND PLAN: 84 M 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 Levemir BID, pre-meal insulin at home Cont. Memantine DC Ceftriaxone, Urine cx showing anguiano sensitive E. coli which can be covered w/ IM PCN cont. BP meds DC home with daughter/ and follow up with PCP Dr. Yoshi Hernández
== END 2020-05-23 17:30 | disposition home or self-care (01) | DRG 637 ==
LOC: JER 15:13 → JERBED 18:58 → J5S 05-21 12:23
PROVIDERS: ADMIT Internal Medicine
DX: E11.65 Type 2 diabetes mellitus with hyperglycemia (principal); E11.00 Type 2 diabetes mellitus with hyperosmolarity without nonketotic hyperglycemic-hyperosmolar coma (NKHHC); G93.41 Metabolic encephalopathy; N17.9 Acute kidney failure, unspecified; E87.1 Hypo-osmolality and hyponatremia; N39.0 Urinary tract infection, site not specified; R42 Dizziness and giddiness; N40.0 Benign prostatic hyperplasia without lower urinary tract symptoms; E87.5 Hyperkalemia; E78.5 Hyperlipidemia, unspecified; I10 Essential (primary) hypertension; E86.0 Dehydration; A52.9 Late syphilis, unspecified; I25.2 Old myocardial infarction; Z95.5 Presence of coronary angioplasty implant and graft; Z91.14 Patient's other noncompliance with medication regimen; Z95.1 Presence of aortocoronary bypass graft
CPT/HCPCS: 36415; 70450-TC; 70551-TC; 71045-TC-FY; 76775-TC; 80048; 80053; 80061; 81003; 82010; 82436; 82533; 82550; 82565; 82607; 82803; 82962; 83036; 83721; 83735; 83930; 83935; 84100; 84133; 84300; 84443; 84484; 85025; 86593; 86780; 87086; 87186; 93005; 93010; 97116-GP; 97161-GP; 99285-25; J1644; U0003